=== PATIENT | female | born 1985 | race Caucasian/White ===

== ENCOUNTER 2016-10-10 08:46 | Inpatient (IN) | payer MEDICARE, MEDICAID, OTHER ==
[2016-10-10 08:52] VITALS: BMI 32.5
[2016-10-10] MEDS ORDERED: Sodium Chloride 0.9% 1,000 ML IV STA ×2 (09:19→13:10)
--- NOTE | 2016-10-10 09:23 | ED PDOC ---
Arrival/HPI - General Chief Complaint: Abdominal Pain Time Seen by Provider: 10/10/16 09:08 Historian: Patient - History of Present Illness Narrative History of Present Illness (Text): 10/10/16 09:20 This 30 yo female presents to this ED c/o "stomach pain" since last night. Patient pain has been increasingly worsen. Pain is worsen when she moves, and improves when remaining still. Pain radiates to her entire abdomen. Patient denies nausea, vomiting, rectal bleeding, melena, hematochezia, hematemesis, sob , cp, dizziness, or abnormal gait. Denies abdominal trauma, STD exposure, urinary symptoms, vaginal discharge, or rash. Time/Duration: Other (since yesterday) Quality: Aching Context: Home Past Medical History - Provider Review Nursing Documentation Reviewed: Yes - Infectious Disease Hx of Infectious Diseases: None - Tetanus Immunization Tetanus Immunization: Unknown - Past Medical History Past Medical History: No Previous - Pulmonary Hx Respiratory Disorders: No - Neurological Hx Neurological Disorder: No - Renal Hx Renal Disorder: No - Hematological/Oncological Hx Blood Disorders: No - Integumentary Hx Dermatological Disorder: No - Musculoskeletal/Rheumatological Hx Musculoskeletal Disorders: No - Gastrointestinal Hx Gastrointestinal Disorders: No - Psychiatric Hx Depression: No Hx Substance Use: No - Past Surgical History Past Surgical History: No Previous - Anesthesia Hx Anesthesia: No - Suicidal Assessment Feels Threatened In Home Enviroment: No Family/Social History - Physician Review Nursing Documentation Reviewed: Yes Family/Social History: No Known Family HX Smoking Status: Smoker Currrent Status Unknown Hx Alcohol Use: Yes Hx Substance Use: No Allergies/Home Meds Allergies/Adverse Reactions: Allergies No Known Allergies Allergy (Verified 10/10/16 08:52) Home Medications: Home Meds Medication Instructions Recorded Confirmed amLODIPine [Norvasc] 10 mg PO DAILY 10/10/16 10/10/16 Review of Systems - Review of Systems Constitutional: Normal. absent: Fatigue, Weight Change, Fevers Eyes: Normal ENT: Normal Respiratory: Normal. absent: SOB, Cough Cardiovascular: Normal. absent: Chest Pain, Palpitations Gastrointestinal: Abdominal Pain. absent: Constipation, Diarrhea, Nausea, Vomiting Genitourinary Female: Normal. absent: Dysuria, Frequency, Hematuria, Vaginal Bleeding, Vaginal Discharge Musculoskeletal: Normal. absent: Back Pain Skin: Normal. absent: Rash Neurological: Normal. absent: Headache, Dizziness, Focal Weakness Endocrine: Normal Hemo/Lymphatic: Normal Psychiatric: Normal Physical Exam Vital Signs Temp Pulse Resp BP Pulse Ox 10/10/16 14:00 98 H 18 116/75 96 10/10/16 11:30 91 H 18 114/72 96 10/10/16 08:53 98.4 F 104 H 22 112/77 96 Temperature: Afebrile Blood Pressure: Normal Pulse: Regular Respiratory Rate: Normal Appearance: Positive for: Well-Appearing, Non-Toxic, Comfortable Pain Distress: None Mental Status: Positive for: Alert and Oriented X 3 - Systems Exam Head: Present: Atraumatic, Normocephalic Pupils: Present: PERRL Extroacular Muscles: Present: EOMI Conjunctiva: Present: Normal Mouth: Present: Moist Mucous Membranes Neck: Present: Normal Range of Motion Respiratory/Chest: Present: Clear to Auscultation, Good Air Exchange. No: Respiratory Distress, Accessory Muscle Use Cardiovascular: Present: Regular Rate and Rhythm, Normal S1, S2. No: Murmurs Abdomen: Present: Tenderness (Mi), Distention, Normal Bowel Sounds, Guarding. No: Peritoneal Signs, Rebound, Hernias Back: Present: Normal Inspection. No: CVA Tenderness Upper Extremity: Present: Normal Inspection. No: Cyanosis, Edema Lower Extremity: Present: Normal Inspection. No: Edema Neurological: Present: GCS=15, CN II-XII Intact, Speech Normal Skin: Present: Warm, Dry, Normal Color. No: Rashes Psychiatric: Present: Alert, Oriented x 3 Medical Decision Making ED Course and Treatment: 10/10/16 12:[address] Chen Hospitalist regarding patient symptoms, and labs finding. He said he will see patient, and he will revaluate after surgical consult is complete. Dr. Arellano had examined patient , he is recommending admission. 10/10/16 12:20 Dr. Chen agreed with plan for observation admission. Re-evaluation Time: 12:03 Reassessment Condition: Re-examined, Improving,but remains with symptoms - Lab Interpretations Lab Results: 10/10/16 09:20 10/10/16 09:20 Lab Results 10/10/16 09:20: Sodium 137, Potassium 3.7, Chloride 101, Carbon Dioxide 25, Anion Gap 15, BUN 10, Creatinine 1.0, Est GFR ( Amer) > 60, Est GFR (Non- Af Amer) > 60, Random Glucose 131 H, Calcium 9.1, Total Bilirubin 1.7 H, AST 18 , ALT 27, Alkaline Phosphatase 54, Total Protein 7.8, Albumin 3.8, Globulin 3.9 , Albumin/Globulin Ratio 1.0 L, Lipase 39 10/10/16 09:20: Urine Color Light red, Urine Appearance Sl cloudy, Urine pH 6.0 , Ur Specific [place] >= 1.030, Urine Protein 100 H, Urine Glucose (UA) Negative , Urine Ketones Trace H, Urine Blood Large H, Urine Nitrate Negative, Urine Bilirubin Negative, Urine Urobilinogen 4.0 H, Ur Leukocyte Esterase Small H, Urine RBC 5 - 10, Urine WBC 10 - 15, Ur Epithelial Cells 10 - 12, Urine Bacteria Few, Urine HCG, Qual Negative 10/10/16 09:20: WBC 18.8 H D, RBC 3.67, Hgb 12.5, Hct 36.2, MCV 98.6, MCH 34.1, MCHC 34.5, RDW 11.9, Plt Count 147, MPV 9.2, Gran % 95.1 H, Lymph % (Auto) 2.3 L , [place] % (Auto) 2.4, Eos % (Auto) 0.1 L, Baso % (Auto) 0.1, Gran # 17.87 H, Lymph # 0.4 L, [place] # 0.5, Eos # 0.0, Baso # 0.01 - RAD Interpretation Radiology Orders: 10/10/16 09:19 ABD & PELVIS IV CONTRAST ONLY [CT] Stat 10/10/16 12:00 CHEST PORTABLE [RAD] Stat - Medication Orders Current Medication Orders: Amlodipine Besylate (Norvasc) 10 mg PO DAILY NARINDER Hydromorphone HCl (Dilaudid) 0.5 mg IVP Q3H PRN PRN Reason: Pain, Mild (1-3) Last Admin: 10/11/16 05:42 Dose: 0.5 mg Re-Assess: VIVIAN Pain Assessment Document 10/11/16 07:50 MJO (Rec: 10/11/16 08:02 MJO [id number]) Pain Reassessment Is this a pain reassessment? Yes Sleep Is patient sleeping during reassessment? No Presence of Pain Presence of Pain No Metronidazole (Flagyl) 500 mg in 100 mls @ 100 mls/hr IVPB Q8 NARINDER PRN Reason: Protocol Last Admin: 10/11/16 05:42 Dose: 100 mls/hr Ceftriaxone Sodium (Rocephin 1 Gram Ivpb) 1 gm in 100 mls @ 100 mls/hr IVPB DAILY NARINDER PRN Reason: Protocol Ondansetron HCl (Zofran Inj) 4 mg IVP Q4H PRN PRN Reason: Nausea/Vomiting Pantoprazole Sodium (Protonix Inj) 40 mg IVP Q12 [facility] Last Admin: 10/10/16 22:10 Dose: 40 mg Potassium Chloride (K-Dur 20 Meq Er Tab) 20 meq PO BID NARINDER Stop: 10/12/16 10:01 Discontinued Medications Famotidine (Pepcid) 20 mg IVP STAT STA Stop: 10/10/16 09:20 Last Admin: 10/10/16 09:25 Dose: 20 mg Sodium Chloride (Sodium Chloride 0.9%) 1,000 mls @ 1,000 mls/hr IV .Q1H STA Stop: 10/10/16 10:18 Last Admin: 10/10/16 09:23 Dose: 1,000 mls/hr Ceftriaxone Sodium (Rocephin 1 Gram Ivpb) 1 gm in 100 mls @ 200 mls/hr IVPB ONCE STA PRN Reason: Protocol Stop: 10/10/16 12:04 Last Admin: 10/10/16 11:54 Dose: 200 mls/hr Metronidazole (Flagyl) 500 mg in 100 mls @ 100 mls/hr IVPB STAT STA PRN Reason: Protocol Stop: 10/10/16 12:35 Last Admin: 10/10/16 13:22 Dose: 100 mls/hr Sodium Chloride (Sodium Chloride 0.9%) 1,000 mls @ 120 mls/hr IV .Q8H20M STA Stop: 10/10/16 21:29 Last Admin: 10/10/16 13:22 Dose: 120 mls/hr Iohexol (Omnipaque 350 100 Ml) Confirm Administered Dose 350 mg .ROUTE .STK-MED ONE Stop: 10/10/16 09:56 Ketorolac Tromethamine (Toradol) 15 mg IVP STAT STA Stop: 10/10/16 09:20 Last Admin: 10/10/16 09:26 Dose: 15 mg Ketorolac Tromethamine (Toradol) Confirm Administered Dose 30 mg .ROUTE .STK- MED ONE Stop: 10/10/16 09:26 Last Admin: 10/10/16 09:30 Dose: Ondansetron HCl (Zofran Inj) 4 mg IVP STAT STA Stop: 10/10/16 09:20 Last Admin: 10/10/16 09:25 Dose: 4 mg Disposition/Present on Arrival - Present on Arrival Any Indicators Present on Arrival: No History of DVT/PE: No History of Uncontrolled Diabetes: No Urinary Catheter: No History of Decub. Ulcer: No History Surgical Site Infection Following: None - Disposition Have Diagnosis and Disposition been Completed?: Yes Diagnosis: Intractable abdominal pain, Leukocytosis Disposition: HOSPITALIZED Disposition Time: 12:20 Patient Plan: Admission Patient Problems: Current Active Problems Problem Status Onset Abdominal pain Acute Condition: STABLE
[2016-10-10 09:28] LABS: ADD MANUAL DIFF? NO
[2016-10-10 09:31] LABS: BASO # 0.01 K/mm3 (0.0-2.0); BASO % 0.1 % (0.0-3.0); EOS % 0.1 % (1.5-5.0); GRAN # 17.87 (1.4-6.5); GRAN % 95.1 % (50.0-68.0); HEMATOCRIT 36.2 % (36.0-48.0); LYMPH # 0.4 (1.2-3.4); LYMPH % 2.3 % (22.0-35.0); MEAN CELL VOLUME 98.6 fL (80.0-105.0); MEAN CORPUSCULAR HEMOGLOBIN 34.1 pg (25.0-35.0); MEAN CORPUSCULAR HGB CONC 34.5 g/dl (31.0-37.0); MEAN PLATELET VOLUME 9.2 fl (7.0-11.0); MONO # 0.5 (0.1-0.6); MONO % 2.4 % (1.0-6.0); PLATELET COUNT 147 10^3/uL (120.0-450.0); RED CELL DISTRIBUTION WIDTH 11.9 % (11.5-14.5); URINE BILIRUBIN NEGATIVE (NEGATIVE); URINE BLOOD LARGE (NEGATIVE); URINE GLUCOSE (UA) NEGATIVE (NEGATIVE); URINE KETONE TRACE mg/dL (NEGATIVE); URINE LEUKOCYTE ESTERASE SMALL Leu/uL (NEGATIVE); URINE PROTEIN 100 mg/dL (<30 mg/dL); WHITE BLOOD COUNT 18.8 10^3/ul (4.5-11.0)
[2016-10-10 09:37] LABS: URINE APPEARANCE SL CLOUDY (CLEAR); URINE COLOR LIGHT RED (YELLOW)
[2016-10-10 09:41] LABS: ALKALINE PHOSPHATASE 54 U/L (38-133); ALT/SGPT 27 U/L (7-56); AST/SGOT 18 U/L (15-39); BILIRUBIN,TOTAL 1.7 mg/dL (0.2-1.3); BLOOD UREA NITROGEN 10 mg/dL (7-21); CALCIUM 9.1 mg/dL (8.4-10.5); CARBON DIOXIDE 25 mmol/L (21-33); CHLORIDE 101 mmol/L (98-107); GFR AFRICAN-AMERICAN > 60; GLUCOSE,RANDOM 131 mg/dL (70-110); LIPASE 39 U/L (23-300); POTASSIUM 3.7 mmol/L (3.6-5.0); SODIUM 137 mmol/L (132-148); TOTAL PROTEIN 7.8 g/dL (5.8-8.3)
[2016-10-10] MEDS ORDERED: Iohexol 350 MG/100 ML VIAL ONE (09:55)
[2016-10-10 10:00] LABS: URINE BACTERIA FEW (NEG)
--- NOTE | 2016-10-10 11:03 | CT ---
PROCEDURE: CT Abdomen and Pelvis with contrast HISTORY: abdominal pain COMPARISON: None. TECHNIQUE: Contrast dose: 100 mL of Omnipaque 350 Radiation dose: Total exam DLP = 1062 mGy-cm. This CT exam was performed using one or more of the following dose reduction techniques: Automated exposure control, adjustment of the mA and/or kV according to patient size, and/or use of iterative reconstruction technique. FINDINGS: LOWER THORAX: Trace atelectatic changes at the left lung base LIVER: Unremarkable. No gross lesion or ductal dilatation. GALLBLADDER AND BILE DUCTS: Unremarkable. PANCREAS: Unremarkable. No gross lesion or ductal dilatation. SPLEEN: Unremarkable. ADRENALS: Unremarkable. No mass. KIDNEYS AND URETERS: Unremarkable. No hydronephrosis. No solid mass. VASCULATURE: Unremarkable. No aortic aneurysm. BOWEL: In the inferior abdomen upper pelvis there is trace thread-like and nonspecific inflammatory like changes in the mesenteric fat between the distal small bowel loops. No gross current mural thickening of the small bowel loops is seen. No obstruction is seen. Prior bowel related inflammatory changes is 1 consideration. No gross diverticulitis is seen. Minimal redundancy of the rectosigmoid colon is noted. This redundant rectosigmoid colon is contiguous team QA this with the right word lead tilted uterus which is mildly heterogeneous. There is also some trace thread-like inflammatory changes bordering the left broadly ligament and left sigmoid bowel loop. Some mild inflammatory changes either relating to either structures consistent with this. No abscess, current mural thickening or obstruction is suggested. No free air suggested. There is mild free fluid in the cul-de-sac apparent and each ovary appears consistent with small physiological appearing follicles. No obstruction. No gross mural thickening. For finding APPENDIX: Normal appendix. PERITONEUM: Unremarkable. No free fluid. No free air. LYMPH NODES: Unremarkable. No enlarged lymph nodes. Incidentally at the level of the lung level, there are symmetrical lateral thoracic benign-appearing small lymph nodes. No suspicious appearing lymphadenopathy suggested BLADDER: Unremarkable. REPRODUCTIVE: Please read the bowel section. BONES: No acute fracture. OTHER FINDINGS: None. IMPRESSION: Mild free fluid in the cul-de-sac. Trace nonspecific inflammatory changes in the mesenteric fat in the abdomen/upper pelvis between distal small bowel loops and in bordering the left broad ligament. No bowel wall mural thickening now apparent. Nonspecific prior inflammatory changes relating to the small bowel and the left broad ligament are consistent with this appearance. If the patient has had an outside CT abdomen and pelvic exam, comparison with that exam is advised . Consider follow-up CT abdomen and pelvic exam with oral and IV contrast to ensure no more desmoplastic or other interval change Currently in no bowel obstruction gross enteritis, free air, diverticulitis or appendicitis is suggested. No adnexal masses appreciated
[2016-10-10] MEDS ORDERED: cefTRIAXone 1 gm 1 GM/100 ML BAG IVPB STA (11:35)
[2016-10-10] MEDS ORDERED: metroNIDAZOLE IV 500 mg/100 ml 500 MG/100 ML BAG IVPB STA (11:36)
--- NOTE | 2016-10-10 12:35 | CP.PCM.CON ---
History of Present Illness - History of Present Illness History of Present Illness: General Surgery Consult: Dr Tubbs PT is a 30F with PMH of HTN. Pt presents with <24 hours of acute abdominal pain. Pt states she awoke last night with 10/10 non-localized pain, radiating to her back. Pain has been persistent since presentation and worsening over time. Pain is worse with movement and is only alleviated when she lays in the left lateral position. Pt denies fevers, chills, nausea, vomiting. Last BM was saturday and normal in consistency. Denies any dark stools, diarrhea, or constipation. Pt reports has never had pain like this before. PMH: HTN PSH: denies Allergies: denies Review of Systems - Constitutional Constitutional: absent: Anorexia, Chills - Cardiovascular Cardiovascular: absent: Chest Pain - Respiratory Respiratory: absent: Cough, Dyspnea, Hemoptysis - Gastrointestinal Gastrointestinal: Abdominal Pain. absent: Bloating, Constipation, Diarrhea, Heartburn, Hematemesis, Hematochezia, Melena, Nausea, Vomiting - Genitourinary Genitourinary: Flank Pain. absent: Difficulty Urinating, Dysuria, Hematuria, Pyuria - Musculoskeletal Musculoskeletal: Back Pain Past Patient History - Infectious Disease Hx of Infectious Diseases: None - Tetanus Immunizations Tetanus Immunization: Unknown - Past Social History Smoking Status: Smoker Currrent Status Unknown - PULMONARY Hx Respiratory Disorders: No - NEUROLOGICAL Hx Neurological Disorder: No - RENAL Hx Chronic Kidney Disease: No - HEMATOLOGICAL/ONCOLOGICAL Hx Blood Disorders: No - INTEGUMENTARY Hx Dermatological Problems: No - MUSCULOSKELETAL/RHEUMATOLOGICAL Hx Musculoskeletal Disorders: No - GASTROINTESTINAL Hx Gastrointestinal Disorders: No - PSYCHIATRIC Hx Depression: No Hx Substance Use: No - SURGICAL HISTORY Hx Surgeries: No - ANESTHESIA Hx Anesthesia: No Meds Allergies/Adverse Reactions: Allergies Allergy/AdvReac Type Severity Reaction Status Date / Time No Known Allergies Allergy Verified 10/10/16 08:52 - Medications Medications: Current Medications Metronidazole (Flagyl) 500 mg in 100 mls @ 100 mls/hr IVPB STAT STA PRN Reason: Protocol Stop: 10/10/16 12:35 Physical Exam - Constitutional Appears: Non-toxic, No Acute Distress - Head Exam Head Exam: NORMOCEPHALIC - Eye Exam Eye Exam: Normal appearance. absent: Scleral icterus - Respiratory Exam Respiratory Exam: absent: Accessory Muscle Use, Respiratory Distress - Cardiovascular Exam Cardiovascular Exam: REGULAR RHYTHM - GI/Abdominal Exam GI & Abdominal Exam: Guarding (voluntary), Normal Bowel Sounds, Soft, Tenderness (diffuse). absent: Distended, Firm, Hernia, Mass, Rebound, Rigid - Extremities Exam Extremities exam: Negative for: calf tenderness, pedal edema - Back Exam Back exam: tenderness (b/l flank). absent: muscle spasm - Neurological Exam Neurological exam: Alert, Oriented x3 - Psychiatric Exam Psychiatric exam: Normal Affect, Normal Mood - Skin Skin Exam: Normal Color, Warm Results - Vital Signs Recent Vital Signs: Last Vital Signs Temp 98.4 F 10/10/16 08:53 Pulse 91 H 10/10/16 11:30 Resp 18 10/10/16 11:30 BP 114/72 10/10/16 11:30 Pulse Ox 96 10/10/16 11:30 - Labs Result Diagrams: 10/10/16 09:20 10/10/16 09:20 Labs: Laboratory Results - last 24 hr 10/10/16 10/10/16 10/10/16 09:20 09:20 09:20 WBC 18.8 H D RBC 3.67 Hgb 12.5 Hct 36.2 MCV 98.6 MCH 34.1 MCHC 34.5 RDW 11.9 Plt Count 147 MPV 9.2 Gran % 95.1 H Lymph % (Auto) 2.3 L [place] % (Auto) 2.4 Eos % (Auto) 0.1 L Baso % (Auto) 0.1 Gran # 17.87 H Lymph # 0.4 L [place] # 0.5 Eos # 0.0 Baso # 0.01 Sodium 137 Potassium 3.7 Chloride 101 Carbon Dioxide 25 Anion Gap 15 BUN 10 Creatinine 1.0 Est GFR ( Amer) > 60 Est GFR (Non-Af Amer) > 60 Random Glucose 131 H Calcium 9.1 Total Bilirubin 1.7 H AST 18 ALT 27 Alkaline Phosphatase 54 Total Protein 7.8 Albumin 3.8 Globulin 3.9 Albumin/Globulin Ratio 1.0 L Lipase 39 Urine Color Light red Urine Appearance Sl cloudy Urine pH 6.0 Ur Specific [place] >= 1.030 Urine Protein 100 H Urine Glucose (UA) Negative Urine Ketones Trace H Urine Blood Large H Urine Nitrate Negative Urine Bilirubin Negative Urine Urobilinogen 4.0 H Ur Leukocyte Esterase Small H Urine RBC 5 - 10 Urine WBC 10 - 15 Ur Epithelial Cells 10 - 12 Urine Bacteria Few Urine HCG, Qual Negative Assessment & Plan - Assessment and Plan (Free Text) Assessment: 30F with abdominal pain and leukocytosis Plan: pt presenting with vague abdominal pain, leukocytosis and minimal hyperbilirubinemia CT scan poor quality: no identifiable organic cause; questionable calcifications in lower pelvis: ddx kidney stones? -will d/w radiology UA shows large blood content, trace esterase; congruent with above differential Abdominal US ordered: eval gallbladder and kidneys r/o cholelithias, hydronephrosis Recommend admission Keep NPO Pain management IV hydration anti-emetics prn d/w Dr Arley Beltran, DO, PGY2 - Date & Time Date: 10/10/16 Time: 12:59
[2016-10-10] MEDS: HYDROmorphone 0.5 mg/0.5 ml ISec IVP PRN ×3 (13:22→22:51)
--- NOTE | 2016-10-10 13:24 | US ---
HISTORY: abdominal pain, r/o cholecystitis COMPARISON: None. TECHNIQUE: Sonographic evaluation of the abdomen. FINDINGS: LIVER: Measures 15 cm. Normal echogenicity of the liver parenchyma. No mass. No intrahepatic bile duct dilatation. GALLBLADDER: 6 x 4 mm anterior gallbladder wall polyp. No gallstones, gallbladder wall thickening or pericholecystic fluid suggested COMMON BILE DUCT: Measures 3 mm. No stones. No dilatation. PANCREAS: Unremarkable as visualized. No mass. No ductal dilatation. RIGHT KIDNEY: Measures 11.5cm. Normal echogenicity. No calculus, mass, or hydronephrosis. LEFT KIDNEY: Measures 11cm. Normal echogenicity. No calculus, mass, or hydronephrosis. SPLEEN: Normal in size and contour. No mass. AORTA: No aneurysmal dilatation. IVC: Unremarkable. OTHER FINDINGS: Prominent bowel gas IMPRESSION: Small incidental gallbladder polyp. Otherwise unremarkable
--- NOTE | 2016-10-10 13:41 | CP.PCM.HP ---
<Juan Inman - Last Filed: 10/10/16 13:31> History of Present Illness - History of Present Illness History of Present Illness: CC: "My stomach hurts" HPI: Patient is a 30 y/o AA F with PMHX of HTN and chronic back pain for which she takes percocet, who presented to the ED with compalnit of abdominal pain which awoke her last night. She states it is a 10/10 and describes it as all over her stomach. She cannot pinpoint one location that is worse. She states that moving around worsens the pain and it is alleviated by laying flat or on her left side. She has not taken any medication for the pain. She states she only takes a blood pressure pill which she does not remember the name and an occasional percocet for back pain since a recent fall. She denies any nausea, vomiting, chest pain, palpitations,fevers, chills, dark stools, diarrhea, or constipation. She is just finishing her period and she is a A4. PMD: PMHx: HTN, chronic back pain Past surgical hx: none Family hx: denies Social hx: lives with family, occasional alcohol and tobacco use on weekends, denies drug use Allergies: NKDA Present on Admission - Present on Admission Any Indicators Present on Admission: No Review of Systems - Constitutional Constitutional: absent: Chills, Fever, Weakness - EENT Eyes: absent: Change in Vision, Diplopia Ears: absent: Decreased Hearing Nose/Mouth/Throat: absent: Dry Mouth, Sore Throat - Cardiovascular Cardiovascular: absent: Chest Pain, Dyspnea, Edema - Respiratory Respiratory: absent: Cough, Dyspnea - Gastrointestinal Gastrointestinal: Abdominal Pain. absent: Bloating, Constipation, Diarrhea, Hematemesis, Hematochezia, Melena, Nausea, Vomiting - Genitourinary Genitourinary: absent: Dysuria, Hematuria, Freq UTI - Reproductive: Female Reproductive:Female: Normal Menses - Menstruation Menstruation: Normal Menses - Musculoskeletal Musculoskeletal: Back Pain (chronic). absent: Numbness, Tingling - Integumentary Integumentary: absent: Lesions, New Lesions, Rash, Wounds - Neurological Neurological: absent: Dizziness, Numbness, Tremor, Weakness - Psychiatric Psychiatric: absent: Anxiety, Depression - Endocrine Endocrine: absent: Palpitations Past Patient History - Infectious Disease Hx of Infectious Diseases: None - Tetanus Immunizations Tetanus Immunization: Unknown - Past Social History Smoking Status: Current Some Days Smoker Chewing Tobacco Use: No Cigar Use: No Alcohol: Social Drugs: Denies Home Situation {Lives}: With Family - PULMONARY Hx Respiratory Disorders: No - NEUROLOGICAL Hx Neurological Disorder: No - RENAL Hx Chronic Kidney Disease: No - HEMATOLOGICAL/ONCOLOGICAL Hx Blood Disorders: No - INTEGUMENTARY Hx Dermatological Problems: No - MUSCULOSKELETAL/RHEUMATOLOGICAL Hx Musculoskeletal Disorders: No - GASTROINTESTINAL Hx Gastrointestinal Disorders: No - PSYCHIATRIC Hx Depression: No Hx Substance Use: No - SURGICAL HISTORY Hx Surgeries: No - ANESTHESIA Hx Anesthesia: No Meds Allergies/Adverse Reactions: Allergies Allergy/AdvReac Type Severity Reaction Status Date / Time No Known Allergies Allergy Verified 10/10/16 08:52 Physical Exam - Constitutional Appears: In Acute Distress, Other (in pain) - Head Exam Head Exam: ATRAUMATIC, NORMOCEPHALIC - Eye Exam Eye Exam: EOMI, Normal appearance, PERRL. absent: Scleral icterus Pupil Exam: NORMAL ACCOMODATION, PERRL - ENT Exam ENT Exam: Mucous Membranes Moist, Normal Oropharynx - Neck Exam Neck exam: Positive for: Normal Inspection. Negative for: Tenderness, Thyromegaly - Respiratory Exam Respiratory Exam: Clear to Auscultation Bilateral, NORMAL BREATHING PATTERN. absent: Rales, Rhonchi, Wheezes - Cardiovascular Exam Cardiovascular Exam: Tachycardia, +S1, +S2. absent: Gallop, Rubs - GI/Abdominal Exam GI & Abdominal Exam: Distended, Guarding, Normal Bowel Sounds, Rebound, Tenderness - Extremities Exam Extremities exam: Positive for: normal capillary refill, normal inspection, pedal pulses present. Negative for: pedal edema, tenderness - Back Exam Back exam: tenderness - Neurological Exam Neurological exam: Alert, CN II-XII Intact, Oriented x3 - Psychiatric Exam Psychiatric exam: Anxious - Skin Skin Exam: Dry, Intact, Normal Color, Warm Results - Vital Signs Recent Vital Signs: Last Vital Signs Temp 98.4 F 10/10/16 08:53 Pulse 91 H 10/10/16 11:30 Resp 18 10/10/16 11:30 BP 114/72 10/10/16 11:30 Pulse Ox 96 10/10/16 11:30 - Labs Result Diagrams: 10/10/16 09:20 10/10/16 09:20 Assessment & Plan - Assessment and Plan (Free Text) Assessment: 30 y/o AA F presents with diffuse abdominal pain and leukocytosis. Surgery and GI consulted. Plan: Intractable Abdomininal Pain * Afebrile w/ leukocytosis of 18.8 * CT Abdomen showed non specific mesenteric fat in the abdomen/upper pelvis between distal small bowel loops and bordering left broad ligament, peritoneal fluid like pockets without any prominent enhancing features noted [see full report] * Abdominal ultrasound showed small incidental gallbladder polyp [see full report] * Surgery consulted, help appreciated * GI consulted, help appreciated * t bili elevated at 1.7 * AST ALT and Alk phos wnl * f/u amylase and lactic acid * f/u blood cultures * Started on Flagyl and Rocephin * NPO diet * IVF hydration * U/A positive for leuk esterase, blood and protein - just finished menses * F/U pelvic and transvaginal ultrasound * pain control as per surgery HTN * BP wnl * monitor closely UTI: * U/A positive for leuk esterase, blood and protein - just finished menses * f/u urine cultures PPX: * SCD's * anticoagulation contraindicated due to possible procedure * Protonix * Zofran for nausea Assessment and plan discussed with attending physician. <Gustavo BURGESS,[facility] - Last Filed: 10/10/16 14:21> Results - Vital Signs Recent Vital Signs: Last Vital Signs Temp 98.4 F 10/10/16 08:53 Pulse 91 H 10/10/16 11:30 Resp 18 10/10/16 11:30 BP 114/72 10/10/16 11:30 Pulse Ox 96 10/10/16 11:30 - Labs Result Diagrams: 10/10/16 09:20 10/10/16 09:20 Attending/Attestation - Attestation I have personally seen and examined this patient.: Yes I have fully participated in the care of the patient.: Yes I have reviewed all pertinent clinical information: Yes Notes (Text): Patient was seen and examined with medical care evaluation specialist . 30 Yrs old female with PMH of Obesity,HTN,alcohol abuse and chronic smoking is admitted with history of abdominal pain since one days, has significant abdominal wall tenderness, diffuse, CT Abdomen showed non specific mesenteric fat in the abdomen/upper pelvis between distal small bowel loops and bordering left broad ligament, peritoneal fluid like pockets without any prominent enhancing feature.The etiology of Pain is not clear, patient does has leukocytosis, we will get Keep Patient NPO, will start patient on IV Rocephin and Flagyl.We will check lactic acid and procalcitonin level.Surgery is already consulted.We will also get GI consult.We will also get amylase and lipase level. Management plan was discussed in detail with patient Education was provided.
--- NOTE | 2016-10-10 14:00 | RAD ---
HISTORY: admission COMPARISON: No prior. FINDINGS: LUNGS: No active pulmonary disease. PLEURA: No significant pleural effusion identified, no pneumothorax apparent. CARDIOVASCULAR: Normal. OSSEOUS STRUCTURES: No significant abnormalities. VISUALIZED UPPER ABDOMEN: Normal. OTHER FINDINGS: None. IMPRESSION: No active disease.
[2016-10-10] MEDS: metroNIDAZOLE IV 500 mg/100 ml 500 MG/100 ML BAG IVPB SCH ×2 (15:20→22:09)
--- NOTE | 2016-10-10 19:02 | US ---
HISTORY: abdominal pain unknown origin r/o endometriosis. LMP 10/04/2016. COMPARISON: 03/07/2015 pelvic ultrasound TECHNIQUE: Transabdominal, transvaginal. Real -time technique with 2D, duplex and color Doppler. FINDINGS: UTERUS: Measures 3.7 x 8.6 cm. Normal in size and appearance. No fibroid or other mass lesion seen. ENDOMETRIUM: Measures 7.5 mm in diameter. No ultrasound findings to suggest gestational sac, fluid, debris, mass or polyp or other pathologic process within the endometrium. CERVIX: No cervical abnormality identified. RIGHT OVARY: Measures 2 x 2.7 cm. No solid mass. Normal flow. LEFT OVARY: Measures 2.2 x 2.7 cm. No solid mass. Normal flow. FREE FLUID: Trace free fluid identified in the pelvis/cul de sac. OTHER FINDINGS: None. IMPRESSION: No acute findings related to/accounting for the clinical presentation. No significant interval change compared to the prior examination(s).
--- NOTE | 2016-10-10 19:03 | US ---
HISTORY: abdominal pain unknown origin r/o endometriosis COMPARISON: None available. TECHNIQUE: Transabdominal, transvaginal. Real -time technique with 2D, duplex and color Doppler. FINDINGS: Findings described in greater detail in the transvaginal component of this study and summarized below in the Impression: IMPRESSION: No acute findings related to/accounting for the clinical presentation.
[2016-10-11] MEDS: HYDROmorphone 0.5 mg/0.5 ml ISec IVP PRN ×3 (05:42→21:21)
[2016-10-11] MEDS: metroNIDAZOLE IV 500 mg/100 ml 500 MG/100 ML BAG IVPB SCH ×3 (05:42→21:20)
[2016-10-11 07:57] LABS: ADD MANUAL DIFF? NO
[2016-10-11 08:04] LABS: BASO # 0.01 K/mm3 (0.0-2.0); BASO % 0.1 % (0.0-3.0); EOS # 0.1 (0.0-0.7); EOS % 0.4 % (1.5-5.0); GRAN # 14.64 (1.4-6.5); GRAN % 88.5 % (50.0-68.0); HEMATOCRIT 32.6 % (36.0-48.0); LYMPH # 1.3 (1.2-3.4); MEAN CELL VOLUME 98.8 fL (80.0-105.0); MEAN CORPUSCULAR HGB CONC 33.4 g/dl (31.0-37.0); MEAN PLATELET VOLUME 9.6 fl (7.0-11.0); MONO # 0.5 (0.1-0.6); PLATELET COUNT 140 10^3/uL (120.0-450.0); WHITE BLOOD COUNT 16.6 10^3/ul (4.5-11.0)
[2016-10-11 08:15] LABS: INR 1.18 (0.93-1.08); PARTIAL THROMBOPLASTIN TIME 34.5 Seconds (23.7-30.8)
[2016-10-11 08:23] LABS: ALB/GLOB RATIO 0.8 (1.1-1.8); ALKALINE PHOSPHATASE 53 U/L (38-133); ALT/SGPT 29 U/L (7-56); AST/SGOT 15 U/L (15-39); BLOOD UREA NITROGEN 8 mg/dL (7-21); CALCIUM 8.3 mg/dL (8.4-10.5); CARBON DIOXIDE 28 mmol/L (21-33); CHLORIDE 104 mmol/L (98-107); GFR AFRICAN-AMERICAN > 60; GLUCOSE,RANDOM 85 mg/dL (70-110); POTASSIUM 3.3 mmol/L (3.6-5.0); SODIUM 138 mmol/L (132-148); TOTAL PROTEIN 6.6 g/dL (5.8-8.3)
[2016-10-11] MEDS: cefTRIAXone 1 gm 1 GM/100 ML BAG IVPB SCH (10:10)
[2016-10-11] MEDS: Potassium Chloride 20 mEq ER Tab PO SCH ×2 (10:10→17:42)
[2016-10-11] MEDS: Sodium Chloride 0.9% 1,000 ML IV SCH ×2 (11:19→21:22)
[2016-10-11] MEDS ORDERED: Barium Sulfate Susp 2.1% w/v, 2.0% w/w 450 mL Bottle PO ONE (14:09)
--- NOTE | 2016-10-11 14:14 | CP.PCM.PN ---
Subjective - Date & Time of Evaluation Date of Evaluation: 10/11/16 Time of Evaluation: 10:00 - Subjective Subjective: Patient seen and evaluated at bedside. She continues to appear uncomfortable with diffuse abdominal pain and tenderness. Tolerating clear liquids. Patient remains afebrile. WBC still elevated. Objective - Vital Signs/Intake and Output Vital Signs (last 24 hours): Temp Pulse Resp BP Pulse Ox 99 F 111 H 20 148/90 100 10/11/16 08:33 10/11/16 08:33 10/11/16 08:33 10/11/16 10:10 10/11/16 08:33 Intake and Output: 10/11/16 10/11/16 06:59 18:59 Intake Total 400 Balance 400 - Medications Medications: Current Medications Amlodipine Besylate (Norvasc) 10 mg PO DAILY [facility] Last Admin: 10/11/16 10:10 Dose: 10 mg Hydromorphone HCl (Dilaudid) 0.5 mg IVP Q3H PRN PRN Reason: Pain, Mild (1-3) Last Admin: 10/11/16 11:21 Dose: 0.5 mg Metronidazole (Flagyl) 500 mg in 100 mls @ 100 mls/hr IVPB Q8 [facility] PRN Reason: Protocol Last Admin: 10/11/16 13:06 Dose: 100 mls/hr Ceftriaxone Sodium (Rocephin 1 Gram Ivpb) 1 gm in 100 mls @ 100 mls/hr IVPB DAILY [facility] PRN Reason: Protocol Last Admin: 10/11/16 10:10 Dose: 100 mls/hr Sodium Chloride (Sodium Chloride 0.9%) 1,000 mls @ 120 mls/hr IV .Q8H20M [facility] Last Admin: 10/11/16 11:19 Dose: 120 mls/hr Ondansetron HCl (Zofran Inj) 4 mg IVP Q4H PRN PRN Reason: Nausea/Vomiting Pantoprazole Sodium (Protonix Inj) 40 mg IVP Q12 [facility] Last Admin: 10/11/16 10:10 Dose: 40 mg Potassium Chloride (K-Dur 20 Meq Er Tab) 20 meq PO BID [facility] Stop: 10/12/16 10:01 Last Admin: 10/11/16 10:10 Dose: 20 meq - Labs Labs: 10/11/16 07:30 10/11/16 07:30 PT 12.7 Seconds (9.9-11.8) H 10/11/16 07:30 INR 1.18 (0.93-1.08) H 10/11/16 07:30 APTT 34.5 Seconds (23.7-30.8) H 10/11/16 07:30 - Constitutional Appears: Non-toxic - Head Exam Head Exam: ATRAUMATIC, NORMOCEPHALIC - Eye Exam Eye Exam: EOMI, PERRL - ENT Exam ENT Exam: Mucous Membranes Moist - Respiratory Exam Respiratory Exam: Clear to Ausculation Bilateral. absent: Rales, Rhonchi, Wheezes - Cardiovascular Exam Cardiovascular Exam: REGULAR RHYTHM, +S1, +S2 - GI/Abdominal Exam GI & Abdominal Exam: Guarding, Soft, Tenderness (diffuse R side > Left side), Normal Bowel Sounds. absent: Firm - Extremities Exam Extremities Exam: absent: Calf Tenderness, Pedal Edema - Neurological Exam Neurological Exam: Alert, Awake, Oriented x3 - Psychiatric Exam Psychiatric exam: Normal Affect, Normal Mood - Skin Skin Exam: Normal Color, Warm Assessment and Plan - Assessment and Plan (Free Text) Assessment: 30F with intractable abdominal pain with leukocytosis. Initial CT does not reveal an identifiable cause of patient's symptoms. Transvaginal and pelvic US are unremarkable as well as abd US. - NPO - IVF - pain management - CT abd/pelvis w/PO & IV contrast today - zofran for nausea
--- NOTE | 2016-10-11 16:53 | CP.PCM.PN ---
<Juan Inman - Last Filed: 10/11/16 16:48> Subjective - Date & Time of Evaluation Date of Evaluation: 10/11/16 Time of Evaluation: 07:45 - Subjective Subjective: Dr. Inman PGY 1 Hospitalist Note Patient seen and evaluated at bedside. She is only laying on her left side which she says makes the pain more bearable. She denies any fever,chills, nausea , vomiting, chest pain, palpitations, diarrhea, or flatulence. On further investigation, she has a new sexual partner and is unaware of his STD history. Also, she notes she is just finishing her menses. Objective - Vital Signs/Intake and Output Vital Signs (last 24 hours): Temp Pulse Resp BP Pulse Ox 99.4 F 111 H 20 146/94 H 100 10/11/16 16:00 10/11/16 16:00 10/11/16 16:00 10/11/16 16:00 10/11/16 16:00 Intake and Output: 10/11/16 10/11/16 06:59 18:59 Intake Total 400 540 Balance 400 540 - Medications Medications: Current Medications Amlodipine Besylate (Norvasc) 10 mg PO DAILY [facility] Last Admin: 10/11/16 10:10 Dose: 10 mg Hydromorphone HCl (Dilaudid) 0.5 mg IVP Q3H PRN PRN Reason: Pain, Mild (1-3) Last Admin: 10/11/16 11:21 Dose: 0.5 mg Metronidazole (Flagyl) 500 mg in 100 mls @ 100 mls/hr IVPB Q8 [facility] PRN Reason: Protocol Last Admin: 10/11/16 13:06 Dose: 100 mls/hr Ceftriaxone Sodium (Rocephin 1 Gram Ivpb) 1 gm in 100 mls @ 100 mls/hr IVPB DAILY [facility] PRN Reason: Protocol Last Admin: 10/11/16 10:10 Dose: 100 mls/hr Sodium Chloride (Sodium Chloride 0.9%) 1,000 mls @ 120 mls/hr IV .Q8H20M [facility] Last Admin: 10/11/16 11:19 Dose: 120 mls/hr Ondansetron HCl (Zofran Inj) 4 mg IVP Q4H PRN PRN Reason: Nausea/Vomiting Pantoprazole Sodium (Protonix Inj) 40 mg IVP Q12 [facility] Last Admin: 10/11/16 10:10 Dose: 40 mg Potassium Chloride (K-Dur 20 Meq Er Tab) 20 meq PO BID [facility] Stop: 10/12/16 10:01 Last Admin: 10/11/16 10:10 Dose: 20 meq - Labs Labs: 10/11/16 07:30 10/11/16 07:30 PT 12.7 Seconds (9.9-11.8) H 10/11/16 07:30 INR 1.18 (0.93-1.08) H 10/11/16 07:30 APTT 34.5 Seconds (23.7-30.8) H 10/11/16 07:30 - Constitutional Appears: Non-toxic, No Acute Distress, Other (in pain) - Head Exam Head Exam: ATRAUMATIC, NORMOCEPHALIC - Eye Exam Eye Exam: EOMI, Normal appearance, PERRL Pupil Exam: NORMAL ACCOMODATION, PERRL - ENT Exam ENT Exam: Mucous Membranes Moist, Normal Oropharynx - Respiratory Exam Respiratory Exam: Clear to Ausculation Bilateral, NORMAL BREATHING PATTERN. absent: Rales, Rhonchi, Wheezes - Cardiovascular Exam Cardiovascular Exam: REGULAR RHYTHM, +S1, +S2. absent: Gallop, Rubs, Murmur - GI/Abdominal Exam GI & Abdominal Exam: Guarding, Soft, Tenderness (diffuse), Normal Bowel Sounds, Rebound (tender) - Extremities Exam Extremities Exam: Normal Capillary Refill, Normal Inspection. absent: Pedal Edema, Tenderness - Back Exam Back Exam: absent: rash noted, tenderness - Neurological Exam Neurological Exam: Alert, Awake, CN II-XII Intact, Oriented x3 - Psychiatric Exam Psychiatric exam: Normal Affect, Normal Mood - Skin Skin Exam: Dry, Intact, Normal Color, Warm Assessment and Plan - Assessment and Plan (Free Text) Assessment: 30 y/o AA F presents with diffuse abdominal pain and leukocytosis. Surgery and GI consulted. Plan: Intractable Abdomininal Pain * Afebrile w/ leukocytosis of 18.8 * CT Abdomen showed non specific mesenteric fat in the abdomen/upper pelvis between distal small bowel loops and bordering left broad ligament, peritoneal fluid like pockets without any prominent enhancing features noted [see full report] * Abdominal ultrasound showed small incidental gallbladder polyp [see full report] * pelvic and transvaginal ultrasound show free fluid in the culdesac [see full report] * Surgery consulted, help appreciated * GI consulted, help appreciated * t bili elevated at 1.7 * AST ALT and Alk phos wnl * amylase and lactic acid wnl * blood cultures negative to date * ESR elevated at 65 * CRP elevated 15. * f/u procalcitonin * Started on Flagyl and Rocephin * currently on liquid diet * IVF hydration * F/U CT abd and pelvis w/ contrast * f/u UDS * pain control as per surgery HTN * BP wnl * Continue home norvasc * monitor closely UTI: * U/A positive for leuk esterase, blood and protein - just finished menses * urine cultures positive for gram positive cocci * currently on Rocephin and Flagyl * will get repeat * f/u GC culture and serology PPX: * SCD's * anticoagulation contraindicated due to possible procedure * Protonix * Zofran for nausea Assessment and plan discussed with attending physician. <Gustavo BURGESS,Keiko - Last Filed: 10/11/16 17:48> Objective - Vital Signs/Intake and Output Vital Signs (last 24 hours): Temp Pulse Resp BP Pulse Ox 99.4 F 111 H 20 146/94 H 100 10/11/16 16:00 10/11/16 16:00 10/11/16 16:00 10/11/16 16:00 10/11/16 16:00 Intake and Output: 10/11/16 10/11/16 06:59 18:59 Intake Total 400 540 Balance 400 540 - Medications Medications: Current Medications Amlodipine Besylate (Norvasc) 10 mg PO DAILY [facility] Last Admin: 10/11/16 10:10 Dose: 10 mg Hydromorphone HCl (Dilaudid) 0.5 mg IVP Q3H PRN PRN Reason: Pain, Mild (1-3) Last Admin: 10/11/16 11:21 Dose: 0.5 mg Metronidazole (Flagyl) 500 mg in 100 mls @ 100 mls/hr IVPB Q8 [facility] PRN Reason: Protocol Last Admin: 10/11/16 13:06 Dose: 100 mls/hr Ceftriaxone Sodium (Rocephin 1 Gram Ivpb) 1 gm in 100 mls @ 100 mls/hr IVPB DAILY [facility] PRN Reason: Protocol Last Admin: 10/11/16 10:10 Dose: 100 mls/hr Sodium Chloride (Sodium Chloride 0.9%) 1,000 mls @ 120 mls/hr IV .Q8H20M [facility] Last Admin: 10/11/16 11:19 Dose: 120 mls/hr Ondansetron HCl (Zofran Inj) 4 mg IVP Q4H PRN PRN Reason: Nausea/Vomiting Pantoprazole Sodium (Protonix Inj) 40 mg IVP Q12 [facility] Last Admin: 10/11/16 10:10 Dose: 40 mg Potassium Chloride (K-Dur 20 Meq Er Tab) 20 meq PO BID [facility] Stop: 10/12/16 10:01 Last Admin: 10/11/16 10:10 Dose: 20 meq - Labs Labs: 10/11/16 07:30 10/11/16 07:30 PT 12.7 Seconds (9.9-11.8) H 10/11/16 07:30 INR 1.18 (0.93-1.08) H 10/11/16 07:30 APTT 34.5 Seconds (23.7-30.8) H 10/11/16 07:30 Attending/Attestation - Attestation I have personally seen and examined this patient.: Yes I have fully participated in the care of the patient.: Yes I have reviewed all pertinent clinical information, including history, physical exam and plan: Yes Notes (Text): Patient was seen and examined with medical logistics specialist .Agreed with resident assessment and plan. 30 F with abdominal pain, has diffuse tenderness, etiology is unclear, on IV Rocephin and Flagyl, tolerating clear liquid, .Lactic acid was normal but CRP is high. Procalcitonin level is pending.We will continue IV antibiotics.Surgery and GI are on case.Blood cultures are negative for any growth.We will also check gonorrhea and chlamydia cultures. Management plan was discussed in detail with patient Education was provided.
--- NOTE | 2016-10-11 17:01 | CON ---
DATE: 10/11/2016 Seen and examined at the bedside earlier this morning. REQUEST FOR CONSULTATION: For intractable abdominal pain. HISTORY OF PRESENT ILLNESS: This is a 30-year-old female with a past medical history of chronic back pain and hypertension. Came to the Emergency Room with complaints of sudden onset of abdominal pain that occurred the day before yesterday. The patient states it is 10/10. She is currently in the bed and complains of diffuse abdominal pain and states that moving around makes the pain worse. She looks uncomfortable. She denies any shortness of breath, no chest pain. She is not complaining of any nausea or vomiting. She did have a tray of liquids at the bedside and was able to tolerate some liquids. No complaints of any fever, chills. No reports of any overt GI bleed, diarrhea or constipation. She did have multiple tests done on admission. CT scan was done , which is showing inferior abdomen, upper pelvis trace threadlike and nonspecific inflammation, nonspecific inflammatory like changes at the mesenteric fat between the distal small bowel loops, no obstruction, no abscess , no enlarged lymph nodes. She did have an abdominal ultrasound, pelvic ultrasound and transvaginal. The reports were reviewed. PAST MEDICAL HISTORY: Hypertension, obesity, chronic back pain. She takes Percocet. PAST SURGICAL HISTORY: Denies. ALLERGIES: No known drug allergies. SOCIAL HISTORY: Occasional alcohol and tobacco use on the weekends. Denies any substance abuse. MEDICATIONS: She is on blood pressure medication and Percocet, reviewed as per MAR. REVIEW OF SYSTEMS: Systems reviewed with positive findings, see HPI. VITAL SIGNS: Temperature is 99, blood pressure is 148/90, pulse 111, respirations 20, 100% on room air. LABORATORIES: WBC is 16.6, on admission it was 18.8, H and H is 10.9 and 32.6, platelets is 140. PT is 12.7, INR is 1.18, PTT 34.5. Sodium 138, K was 3.3, BUN is 8, creatinine is 0.9. LFTs are within normal limits. Her urine shows small leukocyte esterase, large blood, trace of ketones, positive protein. Urine culture is positive gram cocci. She had abdominal ultrasound which is showing 6 mm x 4 mm gallbladder polyp, no fluid or thickening. Pelvic ultrasound was negative. Transvaginal showed trace free fluid in the pelvis and cul-de-sac. PHYSICAL EXAMINATION: HEENT: Sclera is anicteric. NECK: Supple. CARDIAC: S1, S2. LUNGS: Clear. ABDOMEN: With bowel sounds. It is soft, but with diffuse mid abdominal tenderness with positive for guarding, positive rebound guarding. EXTREMITIES: Positive pedal pulses, no edema. NEUROLOGIC: Awake, alert, and oriented. ASSESSMENT: This is a 30-year-old female who came with sudden onset of abdominal pain. CT scan showing some peritoneal fluid like pocket and nonspecific inflammatory changes in the distal small bowel loops. There is no obstruction. Consider differential of peritonitis, pelvic inflammatory disease. The patient does have a urinary tract infection. Her culture is positive for gram-positive cocci. She also has leukocytosis, obesity, history of hypertension. PLAN: Will make patient n.p.o. at this time. Continue IV fluids for hydration. Continue gastrointestinal prophylaxis. She is on Protonix. The patient is on ceftriaxone and Flagyl. The patient is being followed by surgery. Spoke to medical surgical tech, Dr. Blount. Right now, her pain medicine is on hold. Thank you for this consult and for allowing us to participate in your patient's care. We will make further recommendations based upon patient's clinical course. The patient was seen and case discussed with Dr. Luna. Cammie BOSE cc: [id number] TT: 10/11/2016 17:00:14 Confirmation # [id number] Dictation # [id number] en MTDD
--- NOTE | 2016-10-11 19:09 | CON ---
DATE: 10/11/2016 The patient is seen on the floor. I saw her yesterday. She was seen this morning after a dose of me dicine and I examined her about 3 hours post. PHYSICAL EXAMINATION: GENERAL: She is alert, awake, and oriented. ABDOMEN: Somewhat tender without peritoneal signs. VITAL SIGNS: Afebrile. The white count is down to 16 from 18. There is a CAT scan that is really unremarkable. I thought t here was improved pelvic fluid. The ultrasound did not show anything remarkable, either in the pelvi s or by transvaginal. I do not know her diagnosis. I do not think it is appendicitis or acute abdom en. I am leaning more towards pelvic inflammatory disease. Repeat CAT scan is pending. Bernardo Tubbs MD cc: [id number] TT: 10/11/2016 19:08:23 Confirmation # [id number] Dictation # [id number] en
[2016-10-11] MEDS ORDERED: Iohexol 350 MG/100 ML VIAL ONE (19:41)
--- NOTE | 2016-10-11 21:25 | CT ---
EXAM: CT Abdomen and Pelvis With Intravenous Contrast CLINICAL HISTORY: 30 years old, female; Pain; Abdominal pain; Acute; Additional info: Peritonitis TECHNIQUE: Axial computed tomography images of the abdomen and pelvis with intravenous contrast. This CT exam was performed using one or more of the following dose reduction techniques: automated exposure control, adjustment of the mA and/or kV according to patient size, and/or use of iterative reconstruction technique. Coronal and sagittal reformatted images were created and reviewed. CONTRAST: 100 mL of OMNI 350 administered intravenously. EXAM DATE/TIME: 10/11/2016 2:05 PM COMPARISON: CT - ABD PELVIS IV CONTRAST ONLY 10/10/2016 10:28:03 AM FINDINGS: Lower thorax: Heart size is normal. There is left lower lobe airspace disease. There is subsegmental atelectasis/scarring at the right base. There is a trace left effusion. ABDOMEN: Liver: unremarkable Gallbladder and bile ducts: Gallbladder is distended. There is increased attenuation of gallbladder contents Common duct is unremarkable Pancreas: unremarkable Spleen: unremarkable Adrenals: unremarkable Kidneys and ureters: unremarkable Stomach and bowel: Stomach is almost empty. Rotation is normal. There is asymmetric dilatation of small bowel with air-fluid levels. There is a thickened loop of small bowel in the mid abdomen with luminal narrowing.. Distal and terminal ileum are distended with fluid. There is mild distal and terminal ileal wall thickening.. There is mild prominence of the appendix, 7 mm in maximal diameter. Colon is incompletely distended which limits evaluation. There is sigmoid wall thickening. There is inflammation in the left pelvis adjacent to the sigmoid. Appendix: See above. PELVIS: Bladder: Bladder is almost empty. There is bladder wall thickening. Reproductive: Uterus and adnexal structures are unremarkable. ABDOMEN and PELVIS: Intraperitoneal space: There is a small amount of free fluid in the pelvis. There is a small amount of free fluid the in the right adnexa. There is a small amount of fluid at the base of the cecum.. There is no free air. Bones/joints: There are no acute osseous abnormalities. There is minimal retrolisthesis L5 on S1. Soft tissues: There is a small fat containing umbilical hernia. Vasculature: There are calcified phleboliths. Vascular structures are unremarkable. Lymph nodes: There is no pathologic adenopathy. IMPRESSION: Enterocolitis; bladder wall thickening infectious/inflammatory versus reactive; probable vicarious excretion of contrast by the gallbladder Additional findings as described above.
[2016-10-12] MEDS: metroNIDAZOLE IV 500 mg/100 ml 500 MG/100 ML BAG IVPB SCH ×3 (06:25→21:56)
[2016-10-12] MEDS ORDERED: Morphine 2 mg/ml ISec IVP PRN (06:51)
[2016-10-12 07:00] LABS: ADD MANUAL DIFF? NO
[2016-10-12 07:07] LABS: BASO # 0.01 K/mm3 (0.0-2.0); BASO % 0.1 % (0.0-3.0); EOS # 0.1 (0.0-0.7); EOS % 0.5 % (1.5-5.0); GRAN # 10.79 (1.4-6.5); GRAN % 85.4 % (50.0-68.0); LYMPH # 1.3 (1.2-3.4); LYMPH % 10.5 % (22.0-35.0); MEAN CELL VOLUME 96.8 fL (80.0-105.0); MEAN CORPUSCULAR HEMOGLOBIN 33.1 pg (25.0-35.0); MEAN CORPUSCULAR HGB CONC 34.2 g/dl (31.0-37.0); MEAN PLATELET VOLUME 9.2 fl (7.0-11.0); MONO # 0.4 (0.1-0.6); MONO % 3.5 % (1.0-6.0); PLATELET COUNT 148 10^3/uL (120.0-450.0); RED CELL DISTRIBUTION WIDTH 11.7 % (11.5-14.5); WHITE BLOOD COUNT 12.6 10^3/ul (4.5-11.0)
[2016-10-12 07:36] LABS: ALB/GLOB RATIO 0.8 (1.1-1.8); ALKALINE PHOSPHATASE 77 U/L (38-133); ALT/SGPT 22 U/L (7-56); AST/SGOT 20 U/L (15-39); BILIRUBIN,TOTAL 1.2 mg/dL (0.2-1.3); BLOOD UREA NITROGEN 5 mg/dL (7-21); CALCIUM 8.9 mg/dL (8.4-10.5); CARBON DIOXIDE 23 mmol/L (21-33); CHLORIDE 106 mmol/L (95-110); GFR AFRICAN-AMERICAN > 60; GLUCOSE,RANDOM 79 mg/dL (70-110); POTASSIUM 3.5 mmol/L (3.6-5.0); SODIUM 139 mmol/L (132-148); TOTAL PROTEIN 7.4 g/dL (5.8-8.3)
[2016-10-12] MEDS: Sodium Chloride 0.9% 1,000 ML IV SCH ×2 (08:20→18:41)
--- NOTE | 2016-10-12 09:53 | CP.PCM.PN ---
Subjective - Date & Time of Evaluation Date of Evaluation: 10/12/16 Time of Evaluation: 09:47 - Subjective Subjective: No acute events overnight. Abdominal pain is improved. Patient has an appetite and is willing to eat. Patient also notes episodes of non-bloody diarrhea. denies n/v, fever or chills. Objective - Vital Signs/Intake and Output Vital Signs (last 24 hours): Temp Pulse Resp BP Pulse Ox 99.0 F 109 H 17 129/88 96 10/12/16 08:00 10/12/16 08:00 10/12/16 08:00 10/12/16 08:00 10/12/16 08:00 Intake and Output: 10/12/16 10/12/16 06:59 18:59 Intake Total 0 Balance 0 - Medications Medications: Current Medications Amlodipine Besylate (Norvasc) 10 mg PO DAILY [facility] Last Admin: 10/11/16 10:10 Dose: 10 mg Metronidazole (Flagyl) 500 mg in 100 mls @ 100 mls/hr IVPB Q8 [facility] PRN Reason: Protocol Last Admin: 10/12/16 06:25 Dose: 100 mls/hr Ceftriaxone Sodium (Rocephin 1 Gram Ivpb) 1 gm in 100 mls @ 100 mls/hr IVPB DAILY [facility] PRN Reason: Protocol Last Admin: 10/11/16 10:10 Dose: 100 mls/hr Sodium Chloride (Sodium Chloride 0.9%) 1,000 mls @ 120 mls/hr IV .Q8H20M [facility] Last Admin: 10/12/16 08:20 Dose: 120 mls/hr Morphine Sulfate (Morphine) 2 mg IVP Q2H PRN PRN Reason: abdominal pain Ondansetron HCl (Zofran Inj) 4 mg IVP Q4H PRN PRN Reason: Nausea/Vomiting Pantoprazole Sodium (Protonix Inj) 40 mg IVP Q12 [facility] Last Admin: 10/11/16 21:21 Dose: 40 mg Potassium Chloride (K-Dur 20 Meq Er Tab) 20 meq PO BID [facility] Stop: 10/12/16 10:01 Last Admin: 10/11/16 17:42 Dose: Not Given - Labs Labs: 10/12/16 06:30 10/12/16 06:30 PT 12.7 Seconds (9.9-11.8) H 10/11/16 07:30 INR 1.18 (0.93-1.08) H 10/11/16 07:30 APTT 34.5 Seconds (23.7-30.8) H 10/11/16 07:30 - Constitutional Appears: Non-toxic, No Acute Distress - Head Exam Head Exam: ATRAUMATIC, NORMOCEPHALIC - Eye Exam Eye Exam: EOMI, PERRL - ENT Exam ENT Exam: Mucous Membranes Moist - Neck Exam Neck Exam: Full ROM, Normal Inspection - Respiratory Exam Respiratory Exam: Clear to Ausculation Bilateral. absent: Rales, Rhonchi, Wheezes - Cardiovascular Exam Cardiovascular Exam: REGULAR RHYTHM, +S1, +S2 - GI/Abdominal Exam GI & Abdominal Exam: Soft. absent: Distended, Guarding, Rigid, Tenderness - Extremities Exam Extremities Exam: absent: Calf Tenderness, Pedal Edema - Neurological Exam Neurological Exam: Alert, Awake, Oriented x3 - Psychiatric Exam Psychiatric exam: Normal Affect, Normal Mood - Skin Skin Exam: Dry, Intact, Normal Color, Warm Assessment and Plan - Assessment and Plan (Free Text) Assessment: 30F with intractable abdominal pain and leukocytosis secondary to enterocolitis revealed on CT abd/pelvis. - liquid diet for breakfast. advance as tolerated. - Morphine 2mg q2 for pain - abx and medical management per primary team - zofran for nausea - no surgical intervention at this time.
[2016-10-12] MEDS: Potassium Chloride 20 mEq ER Tab PO SCH (10:32)
[2016-10-12] MEDS: cefTRIAXone 1 gm 1 GM/100 ML BAG IVPB SCH (10:33)
--- NOTE | 2016-10-12 12:01 | CP.PCM.PN ---
<Juan Inman - Last Filed: 10/12/16 11:48> Subjective - Date & Time of Evaluation Date of Evaluation: 10/12/16 Time of Evaluation: 09:00 - Subjective Subjective: Dr. Inman PGY 1 Hospitalist Note Patient seen and evaluated at bedside. She is resting comfortably on her back but continues to have abdominal pain. She states it is better controlled with the medication but feels she needs to sleep to ignore the pain. She is tolerating a clear liquid diet but complains that she wants her diet advanced. She denies any fever, chills, nausea, vomiting, chest pain, palpitations, diarrhea, or dysurea. She notes that she had a bowel movement after taking the PO contrast and it was soft, formed, and normal coloration. Other than abdominal tenderness, no other complaints. Objective - Vital Signs/Intake and Output Vital Signs (last 24 hours): Temp Pulse Resp BP Pulse Ox 99.0 F 109 H 17 118/70 96 10/12/16 08:00 10/12/16 08:00 10/12/16 08:00 10/12/16 10:31 10/12/16 08:00 Intake and Output: 10/12/16 10/12/16 06:59 18:59 Intake Total 0 Balance 0 - Medications Medications: Current Medications Amlodipine Besylate (Norvasc) 10 mg PO DAILY [facility] Last Admin: 10/12/16 10:31 Dose: 10 mg Metronidazole (Flagyl) 500 mg in 100 mls @ 100 mls/hr IVPB Q8 [facility] PRN Reason: Protocol Last Admin: 10/12/16 06:25 Dose: 100 mls/hr Ceftriaxone Sodium (Rocephin 1 Gram Ivpb) 1 gm in 100 mls @ 100 mls/hr IVPB DAILY [facility] PRN Reason: Protocol Last Admin: 10/12/16 10:33 Dose: 100 mls/hr Sodium Chloride (Sodium Chloride 0.9%) 1,000 mls @ 120 mls/hr IV .Q8H20M [facility] Last Admin: 10/12/16 08:20 Dose: 120 mls/hr Morphine Sulfate (Morphine) 2 mg IVP Q2H PRN PRN Reason: abdominal pain Ondansetron HCl (Zofran Inj) 4 mg IVP Q4H PRN PRN Reason: Nausea/Vomiting Pantoprazole Sodium (Protonix Inj) 40 mg IVP Q12 [facility] Last Admin: 10/12/16 10:31 Dose: 40 mg - Labs Labs: 10/12/16 06:30 10/12/16 06:30 PT 12.7 Seconds (9.9-11.8) H 10/11/16 07:30 INR 1.18 (0.93-1.08) H 10/11/16 07:30 APTT 34.5 Seconds (23.7-30.8) H 10/11/16 07:30 - Constitutional Appears: Non-toxic, No Acute Distress, Other (overweight) - Head Exam Head Exam: ATRAUMATIC, NORMOCEPHALIC - Eye Exam Eye Exam: EOMI, Normal appearance, PERRL Pupil Exam: NORMAL ACCOMODATION, PERRL - ENT Exam ENT Exam: Mucous Membranes Moist, Normal Oropharynx - Neck Exam Neck Exam: Normal Inspection. absent: Tenderness, Thyromegaly - Respiratory Exam Respiratory Exam: Clear to Ausculation Bilateral, NORMAL BREATHING PATTERN. absent: Rales, Rhonchi, Wheezes - Cardiovascular Exam Cardiovascular Exam: REGULAR RHYTHM, +S1, +S2. absent: Gallop, Rubs, Murmur - GI/Abdominal Exam GI & Abdominal Exam: Guarding, Tenderness (diffusely tender), Normal Bowel Sounds - Extremities Exam Extremities Exam: Normal Capillary Refill, Normal Inspection. absent: Pedal Edema, Tenderness - Back Exam Back Exam: NORMAL INSPECTION. absent: rash noted, tenderness - Neurological Exam Neurological Exam: Alert, Awake, CN II-XII Intact, Oriented x3 - Psychiatric Exam Psychiatric exam: Normal Affect, Normal Mood - Skin Skin Exam: Dry, Intact, Normal Color, Warm Assessment and Plan - Assessment and Plan (Free Text) Assessment: 30 y/o AA F presents with diffuse abdominal pain and leukocytosis. Surgery and GI consulted. Blood and urine cultures positive for group B strep- on IV abx. Plan: Intractable Abdomininal Pain * Afebrile w/ leukocytosis of 18.8 * CT Abdomen showed non specific mesenteric fat in the abdomen/upper pelvis between distal small bowel loops and bordering left broad ligament, peritoneal fluid like pockets without any prominent enhancing features noted [see full report] * Abdominal ultrasound showed small incidental gallbladder polyp [see full report] * pelvic and transvaginal ultrasound show free fluid in the culdesac [see full report] * Repeat CT Abd and pelvis showed: enterocolitis, bladder wall thickening infectious/inflammatory/reactive [see full report] * Surgery consulted, help appreciated * GI consulted, help appreciated * Initial t bili elevated at 1.7, currently wnl * AST ALT and Alk phos wnl * amylase and lactic acid wnl * blood cultures negative show Beta hemolytic strep * f/u repeat blood cultures * ESR elevated at 65 * CRP elevated 15. * procalcitonin elevated at 3.82 * Continue Flagyl and Rocephin * currently on liquid diet- advance to full liquid * IVF hydration * UDS only positive for opiates * pain control as per surgery ucrrently morphine 2mg IVP Q2H HTN * BP wnl * Continue home norvasc * monitor closely UTI: * U/A positive for leuk esterase, blood and protein - just finished menses * urine cultures positive for gram positive cocci * currently on Rocephin and Flagyl * will get repeat * f/u GC culture and serology PPX: * SCD's * anticoagulation contraindicated due to possible procedure * Protonix * Zofran for nausea Assessment and plan discussed with attending physician. <Gustavo BURGESS,Fidewhite oakromelia - Last Filed: 10/13/16 10:37> Objective - Vital Signs/Intake and Output Vital Signs (last 24 hours): Temp Pulse Resp BP Pulse Ox 99.0 F 87 20 146/98 H 96 10/13/16 07:30 10/13/16 07:30 10/13/16 07:30 10/13/16 10:22 10/13/16 07:30 Intake and Output: 10/13/16 10/13/16 06:59 18:59 Intake Total 720 Balance 720 - Medications Medications: Current Medications Amlodipine Besylate (Norvasc) 10 mg PO DAILY [facility] Last Admin: 10/13/16 10:22 Dose: 10 mg Doxycycline Hyclate (Doryx) 100 mg PO Q12 [facility] PRN Reason: Protocol Stop: 10/30/16 22:01 Last Admin: 10/13/16 10:22 Dose: 100 mg Metronidazole (Flagyl) 500 mg in 100 mls @ 100 mls/hr IVPB Q8 [facility] PRN Reason: Protocol Last Admin: 10/13/16 06:23 Dose: 100 mls/hr Ceftriaxone Sodium (Rocephin 2 Gm Ivpb) 2 gm in 100 mls @ 100 mls/hr IVPB DAILY [facility] PRN Reason: Protocol Stop: 10/27/16 10:01 Last Admin: 10/13/16 10:24 Dose: 100 mls/hr Pantoprazole Sodium (Protonix Inj) 40 mg IVP Q12 [facility] Last Admin: 10/13/16 10:25 Dose: 40 mg - Labs Labs: 10/13/16 07:57 10/13/16 07:57 PT 12.7 Seconds (9.9-11.8) H 10/11/16 07:30 INR 1.18 (0.93-1.08) H 10/11/16 07:30 APTT 34.5 Seconds (23.7-30.8) H 10/11/16 07:30 Attending/Attestation - Attestation I have personally seen and examined this patient.: Yes I have fully participated in the care of the patient.: Yes I have reviewed all pertinent clinical information, including history, physical exam and plan: Yes Notes (Text): 10/13/16 10:35 Patient was seen and examined with emergency medical service coordinator .Agreed with resident assessment and plan. Patient is feeling better, still has significant tenderness in abdomen more on left lower quadarnt.WCB is coming down.One blood culture bottle is growing Streptococus a, UA is also positive for gram positive cocci, we will will continue IV Rocephin .falgyl and doxycycline.We will repeat blood cultures, will get 2D echo and ID consult. Management plan was discussed in detail with patient Education was provided.
--- NOTE | 2016-10-12 17:07 | PN ---
DATE: 10/12/2016 Seen and examined at the bedside earlier today. Her abdominal pain is much improved. She went for a CT scan with oral contrast yesterday and that reported enterocolitis, bladder wall thickening and ga llbladder distention. She denies any nausea or vomiting. No fever or chills. She did have a bowel movement after drinking the oral contrast for the CT scan. No reports of any bleeding. Denies any d ysuria or hematuria. No reports of any fever or chills. VITAL SIGNS: Temperature is 99.0, blood pressure 118/70, respirations 17, 96 on room air. LABORATORY DATA: WBC is 12.6, H is 11.3 and 33.0, platelets of 148. Chem: Sodium 139, K is 3.5, BU N is 5, creatinine 0.8. LFTs within normal limits. CT scan of abdomen and pelvis shows small amount of free fluid in the pelvis. There is small amount of free fluid in the right adnexa and fluid at t he base of the cecum. No free air, fat containing umbilical hernia. Impression of enterocolitis marisol dder, wall thickening infectious/inflammatory versus reactive, probably a vicarious excretion of cont rast by the gallbladder. PHYSICAL EXAMINATION: HEENT: Sclera is anicteric. NECK: Supple. CARDIAC: S1, S2. LUNGS: Clear. ABDOMEN: With bowel sounds, softly distended. There is tenderness in the lower abdomen, but no rebo und, guarding, or organomegaly. Abdominal exam is much improved compared to yesterday's when patient had rebound tenderness and guarding. ASSESSMENT: Improved abdominal pain status post repeat CT scan likely enterocolitis, rule out chlamy dial infection, improving leukocytosis, gallbladder polyp. Her urine culture is positive for strep B . PLAN: Starting on clear liquid diet, can advance as tolerated. She is on ceftriaxone, is also on Fl agyl. Continue PPI. Is also having IV fluids, being followed by surgery and is going to get evaluat ion with ID. Her chlamydia result is pending. The patient was seen and case discussed with Dr. Parul michelle. Cammie BOSE cc: [id number] TT: 10/12/2016 17:06:38 Confirmation # [id number] Dictation # [id number] jn
--- NOTE | 2016-10-12 17:36 | CON ---
DATE: 10/12/2016 The patient seen earlier in room 574, bed 2. CHIEF COMPLAINT: Abdominal and pelvic pain times several days. 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 The patient has no know n allergies who was admitted with abdominal pain, but found to have a white count. Infectious diseas e consultation requested. REVIEW OF SYSTEMS: The patient denies any fevers. She continues to have lower abdominal and pelvic pain, which is somewhat improved and no dysuria, but she did have polyuria and no nausea or vomiting at this point. No chest pain, shortness of breath. PAST MEDICAL HISTORY: Significant for hypertension, alcohol abuse, tobacco and chronic back pain. PAST SURGICAL HISTORY: Significant for abortions. ALLERGIES: The patient has no known allergies. MEDICATIONS AT HOME: Include Norvasc. PHYSICAL EXAMINATION: VITAL SIGNS: Temperature is 99, blood pressure is 140/90, respiratory rate of 20, heart rate of 111. HEENT: Unremarkable. NECK: Supple. LUNGS: Have decreased breath sounds. HEART: Normal S1, S2. ABDOMEN: Soft and mild pelvic tenderness. No rebound, no guarding, no masses. LABORATORY EXAMINATION: Reveals a white count of 18,000, hemoglobin of 12 and platelets of 147. BUN of 5, creatinine of 0.8. Urinalysis is noted. CAT scan of the abdomen and pelvis is noted. ASSESSMENT AND PLAN: A 30-year-old female with hypertension, alcohol abuse, tobacco use and chronic back pain with gram-positive cocci bacteremia with group B strep in the urine and probable group B st rep endometritis with gram-positive cocci bacteremia. Must rule out underlying endocarditis, no evid ence of meningitis. No headaches and no dental work done recently. We will treat the patient with R ocephin, Flagyl and doxycycline. She is sexually active with a partner who has multiple partners and she has unprotected sex. She has not had any recent dental work done and will treat with Rocephin a nd Flagyl and order echocardiogram and use doxycycline. Order an HIV, RPR, FTA and chlamydia and GC workup and repeat blood cultures x 2 and we will make further recommendations upon availability of in itial results. Demetrio Juarez MD cc: [id number] TT: 10/12/2016 17:35:49 Confirmation # [id number] Dictation # [id number] cn
[2016-10-13] MEDS: metroNIDAZOLE IV 500 mg/100 ml 500 MG/100 ML BAG IVPB SCH (06:23)
--- NOTE | 2016-10-13 07:43 | CP.PCM.PN ---
Subjective - Date & Time of Evaluation Date of Evaluation: 10/13/16 Time of Evaluation: 06:45 - Subjective Subjective: General Surgery Dr. Tubbs Pt S&E @bedside. NAEO. pain much improved. denies F/C, N/V. tolerating regular diet. Objective - Vital Signs/Intake and Output Vital Signs (last 24 hours): Temp Pulse Resp BP Pulse Ox 98 F 111 H 20 150/95 H 98 10/12/16 16:00 10/12/16 16:00 10/12/16 16:00 10/12/16 16:00 10/12/16 16:00 Intake and Output: 10/13/16 10/13/16 06:59 18:59 Intake Total 720 Balance 720 - Medications Medications: Current Medications Amlodipine Besylate (Norvasc) 10 mg PO DAILY [facility] Last Admin: 10/12/16 10:31 Dose: 10 mg Doxycycline Hyclate (Doryx) 100 mg PO Q12 [facility] PRN Reason: Protocol Stop: 10/30/16 22:01 Last Admin: 10/12/16 21:55 Dose: 100 mg Metronidazole (Flagyl) 500 mg in 100 mls @ 100 mls/hr IVPB Q8 [facility] PRN Reason: Protocol Last Admin: 10/13/16 06:23 Dose: 100 mls/hr Sodium Chloride (Sodium Chloride 0.9%) 1,000 mls @ 120 mls/hr IV .Q8H20M [facility] Last Admin: 10/12/16 18:41 Dose: 120 mls/hr Ceftriaxone Sodium (Rocephin 2 Gm Ivpb) 2 gm in 100 mls @ 100 mls/hr IVPB DAILY [facility] PRN Reason: Protocol Stop: 10/27/16 10:01 Morphine Sulfate (Morphine) 2 mg IVP Q2H PRN PRN Reason: abdominal pain Last Admin: 10/12/16 21:55 Dose: 2 mg Ondansetron HCl (Zofran Inj) 4 mg IVP Q4H PRN PRN Reason: Nausea/Vomiting Pantoprazole Sodium (Protonix Inj) 40 mg IVP Q12 [facility] Last Admin: 10/12/16 21:56 Dose: 40 mg - Labs Labs: 10/12/16 06:30 10/12/16 06:30 PT 12.7 Seconds (9.9-11.8) H 10/11/16 07:30 INR 1.18 (0.93-1.08) H 10/11/16 07:30 APTT 34.5 Seconds (23.7-30.8) H 10/11/16 07:30 - Constitutional Appears: Non-toxic, No Acute Distress - Head Exam Head Exam: NORMAL INSPECTION - Eye Exam Eye Exam: Normal appearance - ENT Exam ENT Exam: Mucous Membranes Moist - Respiratory Exam Respiratory Exam: NORMAL BREATHING PATTERN. absent: Accessory Muscle Use, Respiratory Distress - Cardiovascular Exam Cardiovascular Exam: absent: Bradycardia, Tachycardia - GI/Abdominal Exam GI & Abdominal Exam: Soft. absent: Distended, Guarding, Tenderness, Rebound - Extremities Exam Extremities Exam: Normal Inspection - Neurological Exam Neurological Exam: Alert, Awake, Oriented x3 - Psychiatric Exam Psychiatric exam: Normal Affect, Normal Mood - Skin Skin Exam: Dry, Intact, Normal Color, Warm Assessment and Plan - Assessment and Plan (Free Text) Assessment: 30 y/o F w/ abd pain likely 2/2 enterocolitis - advance diet as tolerated. - cont Abx per ID - can likely transition to PO - pt cleared for discharge to home from surgical standpoint - no surgical intervention at this time Pt discussed w/ Dr. Arley Mckeon DO PGY1
[2016-10-13 07:59] LABS: ADD MANUAL DIFF? NO
[2016-10-13 08:09] LABS: BASO # 0.01 K/mm3 (0.0-2.0); BASO % 0.1 % (0.0-3.0); EOS # 0.2 (0.0-0.7); EOS % 2.3 % (1.5-5.0); GRAN # 5.22 (1.4-6.5); HEMATOCRIT 28.9 % (36.0-48.0); LYMPH # 1.2 (1.2-3.4); LYMPH % 17.6 % (22.0-35.0); MEAN CELL VOLUME 95.7 fL (80.0-105.0); MEAN CORPUSCULAR HEMOGLOBIN 32.8 pg (25.0-35.0); MEAN CORPUSCULAR HGB CONC 34.3 g/dl (31.0-37.0); MEAN PLATELET VOLUME 9.1 fl (7.0-11.0); MONO # 0.4 (0.1-0.6); PLATELET COUNT 156 10^3/uL (120.0-450.0); RED CELL DISTRIBUTION WIDTH 11.7 % (11.5-14.5); WHITE BLOOD COUNT 7.1 10^3/ul (4.5-11.0)
[2016-10-13 08:28] LABS: ALB/GLOB RATIO 0.8 (1.1-1.8); ALKALINE PHOSPHATASE 52 U/L (38-133); ALT/SGPT 27 U/L (7-56); AST/SGOT 15 U/L (15-39); BILIRUBIN,TOTAL 0.8 mg/dL (0.2-1.3); BLOOD UREA NITROGEN 3 mg/dL (7-21); CALCIUM 8.5 mg/dL (8.4-10.5); CARBON DIOXIDE 26 mmol/L (21-33); CHLORIDE 105 mmol/L (95-110); GFR AFRICAN-AMERICAN > 60; GLUCOSE,RANDOM 89 mg/dL (70-110); MAGNESIUM 1.7 mg/dL (1.7-2.2); PHOSPHOROUS 2.8 mg/dL (2.5-4.5); POTASSIUM 3.3 mmol/L (3.6-5.0); SODIUM 137 mmol/L (132-148); TOTAL PROTEIN 6.5 g/dL (5.8-8.3)
[2016-10-13] MEDS ORDERED: Potassium Chloride 20 mEq ER Tab PO ONE (08:56)
[2016-10-13] MEDS: cefTRIAXone 2 GM IN NS 2 GM/100 ML BAG IVPB SCH (10:24)
--- NOTE | 2016-10-13 10:50 | CP.PCM.PN ---
Subjective - Date & Time of Evaluation Date of Evaluation: 10/13/16 Time of Evaluation: 08:30 - Subjective Subjective: Patient was seen and examined with medical insurance clerk Patient is feeling better.She is afebrile, Abdominal pain has significantly improved. Objective - Vital Signs/Intake and Output Vital Signs (last 24 hours): Temp Pulse Resp BP Pulse Ox 99.0 F 87 20 146/98 H 96 10/13/16 07:30 10/13/16 07:30 10/13/16 07:30 10/13/16 10:22 10/13/16 07:30 Intake and Output: 10/13/16 10/13/16 06:59 18:59 Intake Total 720 Balance 720 - Medications Medications: Current Medications Amlodipine Besylate (Norvasc) 10 mg PO DAILY [facility] Last Admin: 10/13/16 10:22 Dose: 10 mg Doxycycline Hyclate (Doryx) 100 mg PO Q12 [facility] PRN Reason: Protocol Stop: 10/30/16 22:01 Last Admin: 10/13/16 10:22 Dose: 100 mg Metronidazole (Flagyl) 500 mg in 100 mls @ 100 mls/hr IVPB Q8 [facility] PRN Reason: Protocol Last Admin: 10/13/16 06:23 Dose: 100 mls/hr Ceftriaxone Sodium (Rocephin 2 Gm Ivpb) 2 gm in 100 mls @ 100 mls/hr IVPB DAILY [facility] PRN Reason: Protocol Stop: 10/27/16 10:01 Last Admin: 10/13/16 10:24 Dose: 100 mls/hr Pantoprazole Sodium (Protonix Inj) 40 mg IVP Q12 [facility] Last Admin: 10/13/16 10:25 Dose: 40 mg - Labs Labs: 10/13/16 07:57 10/13/16 07:57 PT 12.7 Seconds (9.9-11.8) H 10/11/16 07:30 INR 1.18 (0.93-1.08) H 10/11/16 07:30 APTT 34.5 Seconds (23.7-30.8) H 10/11/16 07:30 - Constitutional Appears: Non-toxic, No Acute Distress - Head Exam Head Exam: ATRAUMATIC, NORMAL INSPECTION - Eye Exam Eye Exam: Normal appearance Pupil Exam: NORMAL ACCOMODATION, PERRL - Respiratory Exam Respiratory Exam: Clear to Ausculation Bilateral - Cardiovascular Exam Cardiovascular Exam: REGULAR RHYTHM - GI/Abdominal Exam Additional comments: Soft, minimal tenderness in left lower quadrant. - Extremities Exam Extremities Exam: Normal Inspection - Back Exam Back Exam: NORMAL INSPECTION - Neurological Exam Neurological Exam: Alert, Awake, CN II-XII Intact (non focal) Assessment and Plan - Assessment and Plan (Free Text) Plan: Intractable Abdomininal Pain due to Sepsis Etiology is unclear, blood culture grew Streptococus sanguinis in one bottle, other blood culture bottle and repeat blood cultures are negative for any growth.Initial CT Abdomen showed non specific mesenteric fat in the abdomen/ upper pelvis between distal small bowel loops and bordering left broad ligament , peritoneal fluid like pockets without any prominent enhancing features noted [ see full report].Abdominal ultrasound showed small incidental gallbladder polyp [see full report].Pelvic and transvaginal ultrasound show free fluid in the culdesac [see full report]Repeat CT Abd and pelvis showed: enterocolitis, bladder wall thickening infectious/inflammatory/reactive Patient abdominal pain has improved.She is afebrile, tolerating diet.WBC is coming down. We will follow up 2D echo result. Patient is on IV Rocephin , Flagyl and Doxycycline as per ID.She wants to go home as early as possible.This was discussed in detail with her. HTN Stable with current medication. DVT Prophlaxis , will start on lovenox 40 mg SC daily. Management plan was discussed in detail with patient Education was provided.
--- NOTE | 2016-10-13 12:39 | CARD ---
APPROVED REPORT EXAM: Two-dimensional and M-mode echocardiogram with Doppler and color Doppler. 2D DIMENSIONS Left Atrium (2D)3.4 (1.6-4.0cm)IVSd1.1 (0.7-1.1cm) LVDd4.8 (3.9-5.9cm)PWd1.1 (0.7-1.1cm) LVDs3.3 (2.5-4.0cm)FS (%) 31.0 % LVEF (%)58.4 (>50%) M-Mode DIMENSIONS Left Atrium (MM)3.70 (2.5-4.0cm)Aortic Root2.60 (2.2-3.7cm) Aortic Cusp Exc.1.80 (1.5-2.0cm) Aortic Valve AoV Peak Oayidkfp134.0cm/sAoV VTI28.4cmAO Peak GR.7mmHg LVOT Peak Vdkulods23.7cm/sLVOT VTI19.40cmAO Mean GR.5mmHg Mitral Valve MV E Mseklqll080.0cm/sMV A Lecbdjci22.1cm/sE/A ratio1.6 TDI Lateral E' Peak V8.19cm/sMedial E' Peak V9.46cm/sE/Lateral E'13.1 E/Medial E'11.3 Tricuspid Valve TR Peak Kbgkxeqd008gf/sTR Peak Gr.25mmHg LEFT VENTRICLE The left ventricle is normal size. There is normal left ventricular wall thickness. The left ventricular function is normal. The left ventricular ejection fraction is within the normal range. There is normal LV segmental wall motion. The left ventricular diastolic function is normal. RIGHT VENTRICLE The right ventricle is normal size. There is normal right ventricular wall thickness. The right ventricular systolic function is normal. ATRIA The left atrium size is normal. The right atrium size is normal. AORTIC VALVE The aortic valve is normal in structure. No aortic regurgitation is present. MITRAL VALVE The mitral valve is mildly thickened. Mitral regurgitation is trace. TRICUSPID VALVE The tricuspid valve is normal in structure. GREAT VESSELS The aortic root is normal in size. The IVC is normal in size and collapses >50% with inspiration. PERICARDIAL EFFUSION There is no pericardial effusion. <Conclusion> The left ventricle is normal size. There is normal left ventricular wall thickness. The left ventricular function is normal. The left ventricular ejection fraction is within the normal range. There is normal LV segmental wall motion. The left ventricular diastolic function is normal.
--- NOTE | 2016-10-13 13:00 | PN ---
DATE: 10/13/2016 The patient is in bed in no acute distress. PHYSICAL EXAMINATION: VITAL SIGNS: Temperature is 98, blood pressure is 140/80, respiratory rate of 16. HEENT: Unremarkable. NECK: Supple. LUNGS: Have decreased breath sounds. HEART: Normal S1, S2. ABDOMEN: Soft, nontender. LABORATORY EXAMINATION: Reveals a white count of 7.1, hemoglobin of 9 and platelets of 156 and BUN o f 3, creatinine of 0.7 and procalcitonin is noted. Urinalysis is noted. Toxicology is reviewed. Se rology reveals chlamydia is not detected. Neisseria is detected. GC is detected. The blood culture is actually positive for Streptococcus sanguinis and sensitivity is noted. ASSESSMENT AND PLAN: A 30-year-old female with hypertension, alcohol abuse, tobacco and chronic back pain with Streptococcus sanguinis, bacteremia and group B strep in the urine, now with positive GC, most likely sepsis secondary to pelvic inflammatory disease secondary to gonorrhea and chlamydia. PC R is negative. Currently on Rocephin, Flagyl and doxycycline. We will check on the echo. The repeat blood cultures are no growth. Echo results are pending. If the patient continues to improve, we wi ll switch to p.o. antibiotics once she is afebrile and pelvic pain is resolved. We will follow with you. The case discussed with Dr. Chen. We will follow. Demetrio Juarez MD cc: 350 TT: 10/13/2016 12:58:58 Confirmation # [id number] Dictation # [id number] tn
[2016-10-14 07:51] VITALS: BP 131/86; PULSE 84; RESP 18; TEMP 98.4; O2SAT 97
[2016-10-14] MEDS: cefTRIAXone 2 GM IN NS 2 GM/100 ML BAG IVPB SCH (09:35)
--- NOTE | 2016-10-14 09:51 | PN ---
DATE: 10/14/2016 The patient seen early this morning. She is doing very well. She is much improved. No fevers and c hills. Abdominal pain and pelvic pain is all resolved. PHYSICAL EXAMINATION: VITAL SIGNS: Temperature is 98, blood pressure is 130/70, respiratory rate of 18, heart rate of 84. HEENT: Unremarkable. NECK: Supple. LUNGS: Have decreased breath sounds. HEART: Normal S1, S2. ABDOMEN: Soft, nontender. LABORATORY EXAMINATION: Reveals a white count of 7.1. The chemistries reveals a BUN of 3, creatinin e of 0.7. Urinalysis is noted. Serology is positive for Neisseria gonorrhea and RPR is nonreactive. HIV is pending. FTA is pending. The hemoglobin A1c is pending. The patient is on p.o. doxycycline and p.o. Flagyl and ceftriaxone. The patient's echocardiogram is reported, read by Dr. Price. Echocardiogram is unremarkable for any vegetations. The repeat cul tures are negative. ASSESSMENT AND PLAN: A 30-year-old with hypertension, alcohol abuse, tobacco use, chronic back pain, Streptococcus sanguinis bacteremia, group B strep. Now with positive gonorrhea and group B strep in the urine with sepsis secondary to pelvic inflammatory disease, secondary to gonorrhea with a negati ve echo. May switch to p.o. Vantin 200 mg p.o. b.i.d. x 7 days and with the p.o. doxycycline 100 mg b.i.d. x 7 days and p.o. Flagyl at 500 mg p.o. q. 8 x 7 days. Should follow up HIV testing. The pat ient's partner should be treated also and I have discussed the case with the patient and the fact fidel t she has gonorrhea and that her sexual partner must be treated and needs medical attention. Demetrio Juarez MD cc: 350 TT: 10/14/2016 09:51:01 Confirmation # [id number] Dictation # [id number] en
[2016-10-14] MEDS ORDERED: Bacitracin 500 Units/gm Oint Foilpak UD ONE (11:03)
--- NOTE | 2016-10-14 14:07 | CP.PCM.DIS ---
<Graciela Mcduffie - Last Filed: 11/01/16 00:54> Provider - Provider Date of Admission: 10/10/16 12:16 Attending physician: Keiko Chen MD Primary care physician: unknown Consults: Dr. Tubbs, Dr. Viveros, Dr. Luna Time Spent in preparation of Discharge (in minutes): 35 Hospital Course - Lab Results Lab Results: Micro Results 10/12/16 09:28 Blood-Venous Blood Culture - Preliminary NO GROWTH AFTER 48 HOURS 10/12/16 09:01 Blood-Venous Blood Culture - Preliminary NO GROWTH AFTER 48 HOURS 10/13/16 08:11 Blood Blood Culture - Preliminary NO GROWTH AFTER 24 HOURS 10/13/16 08:11 Blood Blood Culture - Preliminary NO GROWTH AFTER 24 HOURS 10/10/16 13:53 Urine,Clean Catch Urine Culture - Final Beta Hemolytic Strep Group B Most Recent Lab Values WBC 7.1 10^3/ul (4.5-11.0) D 10/13/16 07:57 RBC 3.02 10^6/uL (3.5-6.1) L 10/13/16 07:57 Hgb 9.9 gm/dL (12.0-16.0) L 10/13/16 07:57 Hct 28.9 % (36.0-48.0) L 10/13/16 07:57 MCV 95.7 fL (80.0-105.0) 10/13/16 07:57 MCH 32.8 pg (25.0-35.0) 10/13/16 07:57 MCHC 34.3 g/dl (31.0-37.0) 10/13/16 07:57 RDW 11.7 % (11.5-14.5) 10/13/16 07:57 Plt Count 156 10^3/uL (120.0-450.0) 10/13/16 07:57 MPV 9.1 fl (7.0-11.0) 10/13/16 07:57 Gran % 74.0 % (50.0-68.0) H 10/13/16 07:57 Lymph % (Auto) 17.6 % (22.0-35.0) L 10/13/16 07:57 Coke % (Auto) 6.0 % (1.0-6.0) 10/13/16 07:57 Eos % (Auto) 2.3 % (1.5-5.0) 10/13/16 07:57 Baso % (Auto) 0.1 % (0.0-3.0) 10/13/16 07:57 Gran # 5.22 (1.4-6.5) 10/13/16 07:57 Lymph # 1.2 (1.2-3.4) 10/13/16 07:57 Coke # 0.4 (0.1-0.6) 10/13/16 07:57 Eos # 0.2 (0.0-0.7) 10/13/16 07:57 Baso # 0.01 K/mm3 (0.0-2.0) 10/13/16 07:57 ESR 65 mm/hr (0.0-20.0) H 10/11/16 08:00 PT 12.7 Seconds (9.9-11.8) H 10/11/16 07:30 INR 1.18 (0.93-1.08) H 10/11/16 07:30 APTT 34.5 Seconds (23.7-30.8) H 10/11/16 07:30 Sodium 137 mmol/L (132-148) 10/13/16 07:57 Potassium 3.3 mmol/L (3.6-5.0) L 10/13/16 07:57 Chloride 105 mmol/L (95-110) 10/13/16 07:57 Carbon Dioxide 26 mmol/L (21-33) 10/13/16 07:57 Anion Gap 9 (10-20) L 10/13/16 07:57 BUN 3 mg/dL (7-21) L 10/13/16 07:57 Creatinine 0.7 mg/dL (0.5-1.4) 10/13/16 07:57 Est GFR ( Amer) > 60 10/13/16 07:57 Est GFR (Non-Af Amer) > 60 10/13/16 07:57 POC Glucose (mg/dL) 128 mg/dL (65-110) H 10/13/16 11:38 Random Glucose 89 mg/dL (70-110) 10/13/16 07:57 Lactic Acid 1.2 mmol/L (0.7-2.1) 10/10/16 13:53 Calcium 8.5 mg/dL (8.4-10.5) 10/13/16 07:57 Phosphorus 2.8 mg/dL (2.5-4.5) 10/13/16 07:57 Magnesium 1.7 mg/dL (1.7-2.2) 10/13/16 07:57 Total Bilirubin 0.8 mg/dL (0.2-1.3) 10/13/16 07:57 AST 15 U/L (15-39) 10/13/16 07:57 ALT 27 U/L (7-56) 10/13/16 07:57 Alkaline Phosphatase 52 U/L (38-133) 10/13/16 07:57 C-React Prot High Sens > 15.00 mg/L (1.00-3.00) H 10/11/16 08:00 Total Protein 6.5 g/dL (5.8-8.3) 10/13/16 07:57 Albumin 2.9 g/dL (3.0-4.8) L 10/13/16 07:57 Globulin 3.6 gm/dL 10/13/16 07:57 Albumin/Globulin Ratio 0.8 (1.1-1.8) L 10/13/16 07:57 Amylase 60 U/L (35-125) 10/10/16 13:53 Lipase 39 U/L (23-300) 10/10/16 09:20 Procalcitonin 3.82 NG/ML (0.19-0.49) H 10/11/16 08:00 Urine Color Light red (YELLOW) 10/10/16 09:20 Urine Appearance Sl cloudy (CLEAR) 10/10/16 09:20 Urine pH 6.0 (4.7-8.0) 10/10/16 09:20 Ur Specific [place] >= 1.030 (1.005-1.035) 10/10/16 09:20 Urine Protein 100 mg/dL (<30 mg/dL) H 10/10/16 09:20 Urine Glucose (UA) Negative mg/dL (NEGATIVE) 10/10/16 09:20 Urine Ketones Trace mg/dL (NEGATIVE) H 10/10/16 09:20 Urine Blood Large (NEGATIVE) H 10/10/16 09:20 Urine Nitrate Negative (NEGATIVE) 10/10/16 09:20 Urine Bilirubin Negative (NEGATIVE) 10/10/16 09:20 Urine Urobilinogen 4.0 E.U./dL (<1 E.U./dL) H 10/10/16 09:20 Ur Leukocyte Esterase Small Ish[place]el/uL (NEGATIVE) H 10/10/16 09:20 Urine RBC 5 - 10 /hpf (0-2) 10/10/16 09:20 Urine WBC 10 - 15 /hpf (0-6) 10/10/16 09:20 Ur Epithelial Cells 10 - 12 /hpf (0-5) 10/10/16 09:20 Urine Bacteria Few (NEG) 10/10/16 09:20 Urine HCG, Qual Negative (NEGATIVE) 10/10/16 09:20 Urine Opiates Screen Positive (NEGATIVE) H 10/11/16 17:30 Urine Methadone Screen Negative (NEGATIVE) 10/11/16 17:30 Ur Barbiturates Screen Negative (NEGATIVE) 10/11/16 17:30 Ur Phencyclidine Scrn Negative (NEGATIVE) 10/11/16 17:30 Ur Amphetamines Screen Negative (NEGATIVE) 10/11/16 17:30 U Benzodiazepines Scrn Negative (NEGATIVE) 10/11/16 17:30 U Oth Cocaine Metabols Negative (NEGATIVE) 10/11/16 17:30 U Cannabinoids Screen Negative (NEGATIVE) 10/11/16 17:30 RPR Nonreactive (NONREACTIVE) 10/13/16 07:57 C.trachomatis RNA (TMA) Not detected (Not Detected) 10/11/16 10:30 N.gonorrhoeae RNA (TMA) Detected (Not Detected) H 10/11/16 10:30 - Hospital Course Hospital Course: 30 y/o AA F with PMHX of HTN and chronic back pain, complaint of diffuse abdominal pain which awoke her last night, A4. Transvaginal U/S does not show any acute process. Wbc 18.8, U/A positive for leukocyte esterase, blood and protein. LMP within past week. Admission for Abdominal pain and leukocytosis On floor: CT ABD: mesenteric fat in abdomen/upper pelvis between distal small bowel loops, peritoneal fluid like pockets; Abdominal ultrasound showed small incidental gallbladder polyp. Administered Flagyl, doxycycline and Rocephin, NPO, IVF. pelvic and transvaginal ultrasound. Diet advanced as tolerated; abdominal pain improved and leukocyotosis improved and resolved throughout admission. ECHO on 10/13/2016 wnl w/o vegetation, and repeat Ct abd/ pelv shows bladder wall thickening. Bcx: strep sanguinous. Serology positive for gonorrhea, and pt counselled to get partner treated for the same. Discharged home in stable condition w/ following instructions: You are discharged home. Please follow-up with primary care physician within one week. Please resume your home medications and take the following new medications: Vantin 200 mg my mouth twice daily, Doxycycline 100mg by mouth twice daily and Flagyl 500 mg by mouth three times daily. Please return to emergency department for worsening of symptoms. Discharge Exam - Additional Findings Additional findings: - Constitutional Appears: Non-toxic, No Acute Distress - Head Exam Head Exam: ATRAUMATIC, NORMAL INSPECTION - Eye Exam Eye Exam: Normal appearance, PERRL - Respiratory Exam Respiratory Exam: Clear to Ausculation Bilateral - Cardiovascular Exam Cardiovascular Exam: REGULAR RHYTHM - GI/Abdominal Exam GI/Abdominal Exam: Soft, non-tender - Extremities Exam Extremities Exam: Normal Inspection, pulses appreciated - Back Exam Back Exam: NORMAL INSPECTION, non-tender cva b/l - Neurological Exam Neurological Exam: Alert, Awake - Skin Exam Skin Exam: Warm, intact Discharge Plan - Discharge Medications Prescriptions: Cefpodoxime [Vantin] 200 mg PO BID #14 tab Doxycycline Hyclate 100 mg PO BID #14 capsule Metronidazole [Flagyl] 500 mg PO TID #21 tablet - Follow Up Plan Condition: STABLE Disposition: HOME/ ROUTINE Instructions: Cigarette Smoking and Your Health (GEN), Acute Abdominal Pain (DC ), Leukocytosis (DC), Leukocytosis (GEN), Abdominal Pain (ED), Hypertension (GEN ) Additional Instructions: You are discharged home. Please follow-up with primary care physician within one week. Please resume your home medications and take the following new medications: Vantin 200 mg my mouth twice daily, Doxycycline 100mg by mouth twice daily and Flagyl 500 mg by mouth three times daily. Please return to emergency department for worsening of symptoms. <Keiko Chen MD - Last Filed: 11/05/16 10:20> Provider - Provider Date of Admission: 10/10/16 12:16 Attending physician: Keiko Chen MD Hospital Course - Lab Results Lab Results: Micro Results 10/13/16 08:11 Blood Blood Culture - Final NO GROWTH AFTER 5 DAYS 10/13/16 08:11 Blood Gram Stain - Final TEST NOT PERFORMED 10/13/16 08:11 Blood Blood Culture - Final NO GROWTH AFTER 5 DAYS 10/13/16 08:11 Blood Gram Stain - Final TEST NOT PERFORMED 10/12/16 09:28 Blood-Venous Blood Culture - Final NO GROWTH AFTER 5 DAYS 10/12/16 09:28 Blood-Venous Gram Stain - Final TEST NOT PERFORMED 10/12/16 09:01 Blood-Venous Blood Culture - Final NO GROWTH AFTER 5 DAYS 10/12/16 09:01 Blood-Venous Gram Stain - Final TEST NOT PERFORMED 10/10/16 13:53 Urine,Clean Catch Urine Culture - Final Beta Hemolytic Strep Group B Most Recent Lab Values WBC 7.1 10^3/ul (4.5-11.0) D 10/13/16 07:57 RBC 3.02 10^6/uL (3.5-6.1) L 10/13/16 07:57 Hgb 9.9 gm/dL (12.0-16.0) L 10/13/16 07:57 Hct 28.9 % (36.0-48.0) L 10/13/16 07:57 MCV 95.7 fL (80.0-105.0) 10/13/16 07:57 MCH 32.8 pg (25.0-35.0) 10/13/16 07:57 MCHC 34.3 g/dl (31.0-37.0) 10/13/16 07:57 RDW 11.7 % (11.5-14.5) 10/13/16 07:57 Plt Count 156 10^3/uL (120.0-450.0) 10/13/16 07:57 MPV 9.1 fl (7.0-11.0) 10/13/16 07:57 Gran % 74.0 % (50.0-68.0) H 10/13/16 07:57 Lymph % (Auto) 17.6 % (22.0-35.0) L 10/13/16 07:57 Coke % (Auto) 6.0 % (1.0-6.0) 10/13/16 07:57 Eos % (Auto) 2.3 % (1.5-5.0) 10/13/16 07:57 Baso % (Auto) 0.1 % (0.0-3.0) 10/13/16 07:57 Gran # 5.22 (1.4-6.5) 10/13/16 07:57 Lymph # 1.2 (1.2-3.4) 10/13/16 07:57 Coke # 0.4 (0.1-0.6) 10/13/16 07:57 Eos # 0.2 (0.0-0.7) 10/13/16 07:57 Baso # 0.01 K/mm3 (0.0-2.0) 10/13/16 07:57 ESR 65 mm/hr (0.0-20.0) H 10/11/16 08:00 PT 12.7 Seconds (9.9-11.8) H 10/11/16 07:30 INR 1.18 (0.93-1.08) H 10/11/16 07:30 APTT 34.5 Seconds (23.7-30.8) H 10/11/16 07:30 Sodium 137 mmol/L (132-148) 10/13/16 07:57 Potassium 3.3 mmol/L (3.6-5.0) L 10/13/16 07:57 Chloride 105 mmol/L (95-110) 10/13/16 07:57 Carbon Dioxide 26 mmol/L (21-33) 10/13/16 07:57 Anion Gap 9 (10-20) L 10/13/16 07:57 BUN 3 mg/dL (7-21) L 10/13/16 07:57 Creatinine 0.7 mg/dL (0.5-1.4) 10/13/16 07:57 Est GFR ( Amer) > 60 10/13/16 07:57 Est GFR (Non-Af Amer) > 60 10/13/16 07:57 POC Glucose (mg/dL) 128 mg/dL (65-110) H 10/13/16 11:38 Random Glucose 89 mg/dL (70-110) 10/13/16 07:57 Hemoglobin A1c 4.7 % (4.2-6.5) 10/13/16 07:57 Lactic Acid 1.2 mmol/L (0.7-2.1) 10/10/16 13:53 Calcium 8.5 mg/dL (8.4-10.5) 10/13/16 07:57 Phosphorus 2.8 mg/dL (2.5-4.5) 10/13/16 07:57 Magnesium 1.7 mg/dL (1.7-2.2) 10/13/16 07:57 Total Bilirubin 0.8 mg/dL (0.2-1.3) 10/13/16 07:57 AST 15 U/L (15-39) 10/13/16 07:57 ALT 27 U/L (7-56) 10/13/16 07:57 Alkaline Phosphatase 52 U/L (38-133) 10/13/16 07:57 C-React Prot High Sens > 15.00 mg/L (1.00-3.00) H 10/11/16 08:00 Total Protein 6.5 g/dL (5.8-8.3) 10/13/16 07:57 Albumin 2.9 g/dL (3.0-4.8) L 10/13/16 07:57 Globulin 3.6 gm/dL 10/13/16 07:57 Albumin/Globulin Ratio 0.8 (1.1-1.8) L 10/13/16 07:57 Amylase 60 U/L (35-125) 10/10/16 13:53 Lipase 39 U/L (23-300) 10/10/16 09:20 Procalcitonin 3.82 NG/ML (0.19-0.49) H 10/11/16 08:00 Urine Color Light red (YELLOW) 10/10/16 09:20 Urine Appearance Sl cloudy (CLEAR) 10/10/16 09:20 Urine pH 6.0 (4.7-8.0) 10/10/16 09:20 Ur Specific [place] >= 1.030 (1.005-1.035) 10/10/16 09:20 Urine Protein 100 mg/dL (<30 mg/dL) H 10/10/16 09:20 Urine Glucose (UA) Negative mg/dL (NEGATIVE) 10/10/16 09:20 Urine Ketones Trace mg/dL (NEGATIVE) H 10/10/16 09:20 Urine Blood Large (NEGATIVE) H 10/10/16 09:20 Urine Nitrate Negative (NEGATIVE) 10/10/16 09:20 Urine Bilirubin Negative (NEGATIVE) 10/10/16 09:20 Urine Urobilinogen 4.0 E.U./dL (<1 E.U./dL) H 10/10/16 09:20 Ur Leukocyte Esterase Small [place]/uL (NEGATIVE) H 10/10/16 09:20 Urine RBC 5 - 10 /hpf (0-2) 10/10/16 09:20 Urine WBC 10 - 15 /hpf (0-6) 10/10/16 09:20 Ur Epithelial Cells 10 - 12 /hpf (0-5) 10/10/16 09:20 Urine Bacteria Few (NEG) 10/10/16 09:20 Urine HCG, Qual Negative (NEGATIVE) 10/10/16 09:20 Urine Opiates Screen Positive (NEGATIVE) H 10/11/16 17:30 Urine Methadone Screen Negative (NEGATIVE) 10/11/16 17:30 Ur Barbiturates Screen Negative (NEGATIVE) 10/11/16 17:30 Ur Phencyclidine Scrn Negative (NEGATIVE) 10/11/16 17:30 Ur Amphetamines Screen Negative (NEGATIVE) 10/11/16 17:30 U Benzodiazepines Scrn Negative (NEGATIVE) 10/11/16 17:30 U Oth Cocaine Metabols Negative (NEGATIVE) 10/11/16 17:30 U Cannabinoids Screen Negative (NEGATIVE) 10/11/16 17:30 RPR Nonreactive (NONREACTIVE) 10/13/16 07:57 T.pallidum Ab (FTA-ABS) Nonreactive (Nonreactive) 10/13/16 07:57 C.trachomatis RNA (TMA) Not detected (Not Detected) 10/11/16 10:30 HIV 1&2 Ag/Ab, 4th Gen Nonreactive (Nonreactive) 10/13/16 07:57 N.gonorrhoeae RNA (TMA) Detected (Not Detected) H 10/11/16 10:30 Attending/Attestation - Attestation I have personally seen and examined this patient.: Yes I have fully participated in the care of the patient.: Yes I have reviewed all pertinent clinical information, including history, physical exam and plan: Yes Notes (Text): 11/05/16 10:17 Patient was seen and examined with biomedical service engineer .Agreed with resident assessment and plan. Patient is feeling better.Abdominal pain has improved.WBC has come back to normal.Repeat blood cultures are negative.She is tolerating diet.She will be discharged home on oral antibiotics (Vantin 200 mg my mouth twice daily, Doxycycline 100mg by mouth twice daily and Flagyl 500 mg by mouth three times daily) and will follow up with PCP and OBGYN as out patient. Management plan was discussed in detail with patient Education was provided.
--- NOTE | 2016-10-14 22:37 | PN ---
DATE: 10/14/2016 SUBJECTIVE: This patient was seen and evaluated earlier. The patient is tolerating the diet. No co mplaints. Feeling much improved. PHYSICAL EXAMINATION: VITAL SIGNS: Afebrile, blood pressure 130/70, pulse is 98, respirations 18, heart rate is 84. HEENT: Atraumatic, anicteric. NECK: Supple. HEART: S1, S2 heard. LUNGS: Bilateral air entry present. ABDOMEN: Soft. There is no tenderness. LABORATORY DATA: WBC 7.1. Serology positive for Neisseria gonorrhea and RPR nonreactive. HIV is pe nding. IMPRESSION: This is a 30-year-old patient with hypertension, alcohol use and chronic bacteremia, chr onic back pain, admitted with Streptococcus sanguinis bacteremia, group B strep, now positive gonorrh ea, probably secondary to pelvic inflammatory disease. Switched over to p.o. Vantin and doxycycline and also Flagyl. A detailed was reviewed. Advised to follow up with primary. The patient wou ld also benefit from hepatitis serology. This was advised this can be checked at the time of followu p with the primary doctor. Thank you very much for allowing me to participate in the care of this patient. David Luna MD cc: [phone] TT: 10/14/2016 22:36:43 Confirmation # [id number] Dictation # [id number]
--- NOTE | 2016-10-17 09:13 | PQF GENQUE ---
Patient was admitted with acute abdominal pain, lekocytosis and was found to have diffuse abdominal wall tenderness. Patient work up reveal Gonorrhea which was present at the time of admission.. Patient symptoms are likely due to Pelvic inflamatory disease improved with Rocephin /Flafyl and doxycycline This form is a permanent part of the medical record Dr. Chen, Clarification of your documentation is requested to better reflect the severity of illness and intensity of treatment of your patient. Indicators present : As per ID doctor patient is positive for gonorrhea and ID indicated sepsis secondary to pelvic inflammatory disease. Please verify if you agree with the above diagnosis and specify below. Also indicate below if this is present on admission. Thank you. [] Specify: [] [] Specify: [] [] Specify: [] [] Specify: [] Location in the medical record that reflects the above clinical findings: []10/13 ; 10/14 progress notes Treatment Provided: []doxycyline; flagyl; vantin per ID doctor in 10/14PN PHYSICIAN'S RESPONSE Based on your medical judgment of the clinical indicators outlined above please clarify the following: [] Practitioner response [] If unable to determine, please check the box, sign and date. Present On Admission (POA) Indicator: [] Present at the time of admission [] Not present at the time of admission [] Clinically Undetermined In responding to this query, please exercise your independent professional judgment. The fact that a question is asked does not imply that any particular answer is desired or expected. Thank you for your clarification on this documentation. If you have any questions please call:[ ] * Thank you, [ ]ELIZABETH MCGEEmoisture meter operator JUSTO
== END 2016-10-14 14:00 | disposition home or self-care (01) | DRG 758 ==
LOC: ED 08:46 → ERH 12:16 → 5RSO 16:12
PROVIDERS: ADMIT Internal Medicine; ATTEND Internal Medicine
DX: A54.24 Gonococcal female pelvic inflammatory disease (principal); N39.0 Urinary tract infection, site not specified; E87.5 Hyperkalemia; I10 Essential (primary) hypertension; K52.9 Noninfective gastroenteritis and colitis, unspecified; K82.4 Cholesterolosis of gallbladder; G89.29 Other chronic pain; M54.9 Dorsalgia, unspecified; B95.1 Streptococcus, group B, as the cause of diseases classified elsewhere; F10.10 Alcohol abuse, uncomplicated; Z72.0 Tobacco use; E66.9 Obesity, unspecified; Z68.32 Body mass index [BMI] 32.0-32.9, adult